=== PATIENT | female | born 1940 | race Caucasian/White ===

== ENCOUNTER 2025-02-06 00:08 | Inpatient (IN) | payer MEDICARE, SELFPAY ==
[2025-02-06] VITALS (15 sets, daily range): BP systolic 84–159; BP diastolic 44–77; PULSE 78–113; RESP 16–27; TEMP 36.6–37.3; O2SAT 90–100; BMI 33.3; BMI 39.6
--- NOTE | 2025-02-06 00:10 | ECG_ITS ---
APPROVED REPORT Exam: Resting ECG HR:118 bpm ECG Measurements Heart Rate 118 AXES AZ 216 P 85 QRSd 95 QRS 18 QT 432 T 77 QTc 502 Conclusion SINUS TACHYCARDIA WITH FIRST DEGREE AV BLOCK INFERIOR MYOCARDIAL INFARCTION , PROBABLY OLD [40+ ms Q WAVE AND/OR ST/T ABNORMALITY IN II/aVF] No STEMI Electronically signed by : SERENA WEST, 02/06/2025 07:12:25
--- NOTE | 2025-02-06 00:28 | XR_ITS ---
PROCEDURE INFORMATION: Exam: XR Chest Exam date and time: 02/06/2025 2:22 AM Age: 84 years old Clinical indication: Other: Unwell; Additional info: Feels unwell, afib TECHNIQUE: Imaging protocol: Radiologic exam of the chest. Views: 1 view. COMPARISON: No relevant prior studies available. FINDINGS: Lungs: Unremarkable. No consolidation. Pleural spaces: Unremarkable. No pleural effusion. No pneumothorax. Heart/Mediastinum: Unremarkable. No cardiomegaly. Bones/joints: Degenerative changes of the right shoulder. IMPRESSION: No acute disease.
--- NOTE | 2025-02-06 00:43 | CT_ITS ---
PROCEDURE INFORMATION: Exam: CT Abdomen And Pelvis With Contrast Exam date and time: 02/06/2025 2:33 AM Age: 84 years old Clinical indication: Abdominal pain; Additional info: Generalized weakness, diarrhea TECHNIQUE: Imaging protocol: Computed tomography of the abdomen and pelvis with contrast. 3D rendering (Not supervised by radiologist): MIP and/or 3D reconstructed images were created by the technologist. Radiation optimization: All CT scans at this facility use at least one of these dose optimization techniques: automated exposure control; mA and/or kV adjustment per patient size (includes targeted exams where dose is matched to clinical indication); or iterative reconstruction. Contrast material: ISOVUE; Contrast volume: 70 ml; Contrast route: IV; COMPARISON: CR XR CHEST PORTABLE 02/06/2025 2:22 AM FINDINGS: Diaphragm: Large hiatal hernia. Liver: Normal. No mass. Gallbladder and biliary ducts: Normal. No calcified stones. No ductal dilation. Pancreas: Normal. No ductal dilation. Spleen: Normal. No splenomegaly. Adrenal glands: Normal. No mass. Kidneys and ureters: 3 cm simple appearing right renal cysts. No hydronephrosis or hydroureter. Stomach and bowel: Unremarkable. No obstruction. No mucosal thickening. Appendix: No evidence of appendicitis. Intraperitoneal space: Mild edema in the central mesentery. Vasculature: Filling defect in the left renal vein. Moderate calcification of the aorta and iliac arteries. Lymph nodes: Unremarkable. No enlarged lymph nodes. Urinary bladder: Unremarkable as visualized. Reproductive: Unremarkable as visualized. Bones/joints: Unremarkable. No acute fracture. Soft tissues: Unremarkable. IMPRESSION: 1. Filling defect in the left renal vein. Suspicious for renal vein thrombosis. 2. Large hiatal hernia. COMMENTS: Consistent with the [employer]'s Incidental Findings Committee white paper (J Am Walt Radiol 2018): Any incidental renal lesion less than 1 cm or classified as too small to characterize, or any incidental cystic renal lesion characterized as simple-appearing, is likely benign. No follow-up imaging is recommended for these lesions per consensus recommendations based on imaging criteria.
[2025-02-06] MEDS: LACTATED RINGERS 1000ML 1,000 ML 999 ML IV (00:44)
[2025-02-06] MEDS: ASPIRIN 81MG CHEWABLE TABLET 324 MG PO (00:44)
[2025-02-06 00:45] LABS: Hematocrit 39.7 % (37.0-47.0); Hemoglobin 13.0 g/dL (12.2-16.2); Immature Granulocytes % 0.8 %; Mean Corpuscular HGB Conc 32.7 g/dL (31.8-35.4); Mean Corpuscular Hemoglobin 31.9 pg (27.0-31.2); Mean Corpuscular Volume 97.3 fl (81-99); Nucleated Red Blood Cells % 0 %; Platelet Count 322 K/mm3 (142-424); Red Blood Count 4.08 M/mm3 (4.20-5.40); Red Cell Distribution Width-SD 46.6 fL; White Blood Count 29.5 K/mm3 (4.8-10.8)
[2025-02-06 00:46] LABS: Alanine Aminotransferase 20 U/L (12-78); Albumin Level 4.3 g/dl (3.5-5.0); Albumin/Globulin Ratio 1.0 (1.1-1.8); Alkaline Phosphatase 85 U/L (38-126); Anion Gap 13.3 mEq/L (5-15); Aspartate Amino Transferase 44 U/L (14-36); Bilirubin,Total 1.7 mg/dl (0.2-1.3); Blood Urea Nitrogen 21 mg/dl (7-17); Calcium 10.1 mg/dl (8.4-10.2); Carbon Dioxide 27 mmol/L (22.0-30.0); Chloride 98 mmol/L (98-107); Creatinine Clearance Estimated 60 mL/min (50-200); Creatinine,Serum 1.00 mg/dl (0.52-1.04); Estimated Glomerular Filt Rate 53 ml/min (>60); GFR (African American) 64 ML/MIN (>60); Globulin 4.2 g/dL (1.3-3.2); Glucose 165 mg/dl (74-100); Potassium 4.3 mmoL/L (3.5-5.1); Sodium 134 mmol/L (136-145); Total Protein,Serum 8.5 g/dl (6.3-8.2)
--- NOTE | 2025-02-06 00:52 | CT_ITS ---
PROCEDURE INFORMATION: Exam: CTA Chest With Contrast Exam date and time: 02/06/2025 2:33 AM Age: 84 years old Clinical indication: Other: Unwell; Additional info: Tachy sepsis TECHNIQUE: Imaging protocol: Computed tomographic angiography of the chest with contrast. Exam focused on the arteries. 3D rendering (Not supervised by radiologist): MIP and/or 3D reconstructed images were created by the technologist. Radiation optimization: All CT scans at this facility use at least one of these dose optimization techniques: automated exposure control; mA and/or kV adjustment per patient size (includes targeted exams where dose is matched to clinical indication); or iterative reconstruction. Contrast material: ISOVUE; Contrast volume: 70 ml; Contrast route: INTRAVENOUS (IV); COMPARISON: CR XR CHEST PORTABLE 02/06/2025 2:22 AM FINDINGS: Limitations: Motion artifact degrades image quality and limits the sensitivity of this examination. Pulmonary arteries: Normal. No pulmonary emboli. Aorta: Extensive calcification of the aorta. Lungs: Unremarkable. No consolidation. No masses. Pleural spaces: Unremarkable. No pneumothorax. No pleural effusion. Heart: Unremarkable. No cardiomegaly. No pericardial effusion. Coronary arteries: Moderate calcification of the coronary arteries. Lymph nodes: Unremarkable. No enlarged lymph nodes. Diaphragm: Large hiatal hernia. Bones/joints: Unremarkable. No acute fracture. Soft tissues: Unremarkable. IMPRESSION: 1. No acute findings. 2. Large hiatal hernia. 3. Atherosclerotic calcification of the coronary arteries and aorta.
[2025-02-06 00:58] LABS: NT Pro Brain Natriuretic Pep. 1020 pg/mL (0-450)
[2025-02-06 01:00] LABS: Troponin I 0.01 ng/ml (0.00-0.034)
[2025-02-06 01:06] LABS: INR 1.00 (0.9-1.1); Prothrombin Time 11.1 seconds (10.1-12.5)
[2025-02-06 01:08] LABS: Adenovirus,PCR Not Detected (NotDetected); Chlamydophila Pneumoniae, PCR Not Detected (NotDetected); Coronavirus 19, PCR Not Detected (NotDetected); Coronovirus HKU1,PCR Not Detected (NotDetected); Influenza A, PCR Not Detected (NotDetected); Influenza AH1, 2009 Not Detected (NotDetected); Influenza AH1, PCR Not Detected (NotDetected); Influenza AH3,PCR Not Detected (NotDetected); Influenza B, PCR Not Detected (NotDetected); Mycoplasma Pneumoniae, PCR Not Detected (NotDetected); Parainfluenza 1, PCR Not Detected (NotDetected); Parainfluenza 2, PCR Not Detected (NotDetected); Parainfluenza 3, PCR Not Detected (NotDetected); Parainfluenza 4, PCR Not Detected (NotDetected)
--- NOTE | 2025-02-06 01:27 | PC.NURSE ---
Attempted to in & out cath pt for a UA. Kati RHODES at bedside, pt has a prolapsed bladder. Dr Laurent called to bedside, we will place a purewick cath in place to obtain a UA.
[2025-02-06 01:34] LABS: Total Cells Counted 100
[2025-02-06 01:35] LABS: RBC Morphology Normal
[2025-02-06] MEDS: CEFEPIME HCL 2 GM in 0.9 % SODIUM CHLORIDE 100 ML IV ×3 (02:01→18:55)
[2025-02-06] MEDS: LACTATED RINGERS 1360 ML IV (02:02)
[2025-02-06] MEDS: IOPAMIDOL-370 (76%);100ML BOTTLE 70 ML IV (02:41)
[2025-02-06] MEDS: SODIUM CHLORIDE 0.9% 10ML SYR (RAD ONLY) 10 ML IV (02:41)
[2025-02-06] MEDS: 0.9 % SODIUM CHLORIDE 50 ML VIAL IV (02:41)
[2025-02-06] MEDS: VANCOMYCIN/WATER FOR INJ (PEG) 1.75 GM/350 ML PIGGYBACK IV (03:13)
[2025-02-06] MEDS: METRONIDAZ/SOD CHL 500 MG/100 ML PIGGYBACK 100 MG IV (03:13)
--- NOTE | 2025-02-06 03:45 | EXP.HP ---
History of Present Illness *Admission Date: 02/06/25 *Reason for visit:: weakness *History of present illness: Ms. Najera is an 84-year-old female who presented to the ER because of complaint of feeling weak over the past day or 2. Has not wanted to get out of her chair at home. Has had some nausea but denies chest pain. On arrival by EMS, patient was found to be in A-fib with heart rate 130-160. She was unkempt and covered in feces. She denies nausea, vomiting, headache, dizziness, chest pain. Afebrile. Workup in the ER concerning for white count of 29. Heart rate showed some improvement with fluids and initiation of treatment for UTI/sepsis. Medicine consulted for admission and further management. [facility] Disclaimer: The information contained in this section may have been updated after the patient was seen, as this information can be updated by other users. Medical History Obesity (BMI 30.0-34.9) Hypothyroid Hypertension Social History Smoking Status: Never smoker alcohol intake: never current occupational status: retired Travel in the last 8 weeks?: None Review of Systems Review of Systems Review of systems (narrative): 14 point review of systems performed, pertinent positives and negatives as per HPI Meds Home Medications and Allergies Home Medications ?Medication ?Instructions ?Recorded ?Confirmed ?Type fluticasone propionate 50 1 spray intranasal BID 02/06/25 02/06/25 History mcg/actuation nasal spray,suspension hydrocodone 10 mg-acetaminophen 1 tab PO QID 02/06/25 02/06/25 History 325 mg tablet levothyroxine 75 mcg tablet 75 mcg PO DAILY 02/06/25 02/06/25 History losartan 50 mg-hydrochlorothiazide 1 tab PO DAILY 02/06/25 02/06/25 History 12.5 mg tablet montelukast 10 mg tablet 10 mg PO DAILY 02/06/25 02/06/25 History tolterodine 2 mg capsule,extended 2 mg PO DAILY 02/06/25 02/06/25 History release 24 hr New Prescriptions to Start Prescriptions: Allergies Allergy/AdvReac Type Severity Reaction Status Date / Time morphine AdvReac Anxiety Verified 02/06/25 00:50 Penicillins AdvReac Hives Verified 02/06/25 00:49 Sulfa (Sulfonamide AdvReac Hives Verified 02/06/25 00:49 Antibiotics) tetanus immune globulin AdvReac Unknown Verified 02/06/25 00:49 allergy reaction Exam Data for Last 24 hours Vital signs and Labs for Last 24 Hours: Temp Pulse Resp BP Pulse Ox O2 Del Method 98.8 F 111 H 27 H 95/61 L 95 Room Air 02/06/25 00:11 02/06/25 01:30 02/06/25 01:30 02/06/25 01:30 02/06/25 01:30 02/06/25 00:11 Laboratory Results - last 24 hr 02/06/25 00:10: WBC 29.5 H*, RBC 4.08 L, Hgb 13.0, Hct 39.7, MCV 97.3, MCH 31.9 H, MCHC 32.7, RDW 13.0, Plt Count 322, MPV 9.8, Neut % (Auto) 90.7 H, Lymph % (Auto) 3.6 L, Jennings % (Auto) 4.6, Eos % (Auto) 0.2, Baso % (Auto) 0.1, Neut # (Auto) 26.8 H, Lymph # (Auto) 1.1, Jennings # (Auto) 1.4 H, Eos # (Auto) 0.1, Baso # (Auto) 0.0, Total Counted 100, Neutrophils % (Manual) 89 H, Lymphocytes % (Manual) 7 L, Monocytes % (Manual) 4, Platelet Estimate Normal, RBC Morphology Normal, PT 11.1, INR 1.00, Sodium 134 L, Potassium 4.3, Chloride 98, Carbon Dioxide 27, Anion Gap 13.3, BUN 21 H, Creatinine 1.00, Estimated Creat Clear 60, Estimated GFR 53 L, Est GFR ( Amer) 64, Glucose 165 H, Calcium 10.1, Total Bilirubin 1.7 H, AST 44 H, ALT 20, Alkaline Phosphatase 85, Troponin I 0.01, NT-Pro-B Natriuret Pep 1020 H, Total Protein 8.5 H, Albumin 4.3, Globulin 4.2 H, Albumin/Globulin Ratio 1.0 L 02/06/25 01:00: Chlamy pneumoniae PCR Not detected, Adenovirus (PCR) Not detected, B. pertussis DNA (PCR) Not detected, Coronavirus OC43 (PCR) Not detected, Coronavirus HKU1 (PCR) Not detected, Coronavirus 229E (PCR) Not detected, SARS-CoV-2 (PCR) Not detected, Coronavirus NL63 (PCR) Not detected, Human Metapneumovir PCR Not detected, Influenza A (H1) PCR Not detected, Influ A (H1N1/09) PCR Not detected, Influenza A (H3) PCR Not detected, Influenza Type A (PCR) Not detected, Influenza Type B (PCR) Not detected, M. pneumoniae (PCR) Not detected, Parainfluenza 1 (PCR) Not detected, Parainfluenza 2 (PCR) Not detected, Parainfluenza 3 (PCR) Not detected, Parainfluenza 4 (PCR) Not detected, RSV (PCR) Not detected, Entero/Rhino (PCR) Not detected 02/06/25 01:08: Lactate 2.2 H I & O for Last 24 hours: Intake & Output 02/03/25 02/04/25 02/05/25 02/06/25 23:59 23:59 23:59 23:59 Weight 90.718 kg Constitutional Constitutional: no acute distress, obese, chronically ill appearing, disheveled and cooperative *Routine HEENT Exam Head: Present normocephalic Eye: Present EOMI and PERRL ENT: Present mucous membranes moist *Routine Neck Exam Neck: Present supple; Absent lymphadenopathy *Routine Respiratory Exam Respiratory: Present CTA bilaterally *Routine Cardiovascular Exam Cardiovascular: Present tachycardia and irregularly irregular *Routine Abdominal Exam Abdominal: Present soft and normoactive bowel sounds; Absent tenderness *Routine Rectal Exam Rectal:: deferred *Routine Genitalia Exam Genitalia:: deferred *Routine Extremities Exam Extremities: Absent cyanosis, clubbing or edema *Routine Skin Exam Skin: Present intact and warm; Absent rash *Routine Neurological Exam Neurological: Present alert, oriented X3 and moving all extremities; Absent altered mental status Assessment and Plan *Assessment and plan (1) New onset atrial fibrillation: Status: Acute Category: Medical Code(s): I48.91 - Unspecified atrial fibrillation (2) UTI (urinary tract infection): Status: Acute Category: Medical Code(s): N39.0 - Urinary tract infection, site not specified (3) Sepsis: Status: Acute Category: Medical Code(s): A41.9 - Sepsis, unspecified organism (4) Hypertension: Status: Chronic Category: Medical Code(s): I10 - Essential (primary) hypertension (5) Hypothyroid: Status: Chronic Category: Medical Code(s): E03.9 - Hypothyroidism, unspecified (6) Obesity (BMI 30.0-34.9): Status: Chronic Category: Medical Code(s): E66.811 - Obesity, class 1 Plan 84-year-old female who came to the ER because of complaint of weakness. States has been worse over the past 1 to 2 days. On presentation was found to have new onset A-fib with RVR. Meeting sepsis criteria with white count of 29.5, heart rate above 100, suspected UTI due to adhesion and stool in region. Discussed case with ER physician, request admission for further management of sepsis and A-fib. I decided to admit for further care. Initiated on empiric antibiotics. Heart rate showing improvement on amiodarone. Problems addressed as follows: Sepsis Urinary incontinence - Meeting criteria as above with white count of 29.5, heart rate above 100, suspected UTI. - Blood cultures obtained and pending. Urine culture pending. - Labs reviewed with normal kidney function, BUN 21, creatinine 1.0. Sodium 135, glucose elevated at 165. BNP mildly elevated at a thousand - Repeat CBC, CMP, magnesium ordered for the morning - Initiated on empiric antibiotics with vancomycin and cefepime. Will continue vancomycin IV and cefepime 2 g every 8 hours - Resume home tolterodine 2 mg daily A-fib with RVR, new onset Hypertension -Heart rate somewhat improved after initiating treatment for her sepsis. Heart rate at 100 at time of my evaluation. - Will initiate metoprolol to tartrate 25 mg every 8 hours - Cardiology consulted to evaluate in the morning. Echo ordered and pending - On therapeutic Lovenox 1 mg/kg twice daily - EKG per my review showing A-fib. No significant ST elevation Hypothyroid - TSH ordered and pending. Resume home levothyroxine 75 mcg daily Full code Cardiac diet Therapeutic Lovenox
--- NOTE | 2025-02-06 03:58 | PC.NURSE ---
Bladder Scan shows 89ml
[2025-02-06 04:16] LABS: Troponin I 0.02 ng/ml (0.00-0.034)
--- NOTE | 2025-02-06 04:48 | [facility].EDGENADL ---
Discharge Plan Clinical Impressions Clinical Impression: Sepsis, New onset atrial fibrillation, Hernia, hiatal, Renal vein thrombosis, Renal cyst Discharge ED Provider: Kyrie Laurent Adult HPI General Chief complaint: Arrhythmia/Palpitations Stated complaint: chest pain Time Seen by Provider: 02/06/25 00:28 Mode of Arrival: EMS Source of Information: Patient Description of Symptoms (Recalled from ER Triage Doc. by RN): patient c/o not feeling well all day. states that she has been sitting in her recliner at home since she got up this morning. patient states she has some nausea but denies chest pain. EMS stated patient was in afib on their montior with rate of 130-160 History of Present Illness HPI narrative: 84-year-old female presents to the ER complaining of feeling generally unwell. She states she has mild nausea but no chest pain or difficulty breathing, she states she has had a chronic diarrhea but this is nothing new and it is not bloody, nonmelanotic. Patient reports no painful urination or blood in her urine but wears briefs constantly. She arrives covered in feces. Patient denies any headache or dizziness, no numbness, tingling, or weakness. She repeatedly states I just do not feel good . She denies fevers or chills. EMS reports patient was in A-fib RVR with a rate of 130-160, patient reports no history of atrial fibrillation or other cardiac problems. She denies any history of CHF. She denies any swelling in the feet or legs. She does report having a history of previous strokes but not having any strokelike symptoms at this time. Related Data Allergies Allergy/AdvReac Type Severity Reaction Status Date / Time morphine AdvReac Anxiety Verified 02/06/25 00:50 Penicillins AdvReac Hives Verified 02/06/25 00:49 Sulfa (Sulfonamide AdvReac Hives Verified 02/06/25 00:49 Antibiotics) tetanus immune globulin AdvReac Unknown Verified 02/06/25 00:49 allergy reaction [facility] Disclaimer: The information contained in this section may have been updated after the patient was seen, as this information can be updated by other users. Medical History (Updated 02/06/25 @ 05:01 by Kyrie Laurent MD) Obesity (BMI 30.0-34.9) Hypothyroid Hypertension Social History Smoking Status: Never smoker alcohol intake: never current occupational status: retired Travel in the last 8 weeks?: None ROS Obtained: Yes Systems reviewed as appropriate & no additional complaints except as documented Per HPI Physical Exam General General appearance: alert, in no apparent distress and obese Head Head exam: atraumatic and normocephalic Eye Eye exam: Present PERRL and EOMI ENT ENT exam: Present mucous membranes moist Neck Neck exam: Present normal inspection and full ROM Chest Chest inspection: Present symmetric chest wall rise Respiratory Respiratory exam: Present normal lung sounds bilaterally; Absent respiratory distress, wheezes or stridor Cardiovascular Cardiovascular exam: Present regular rate and normal rhythm Abdominal Exam Abdominal exam: Present soft; Absent distention, tenderness, guarding or rebound External exam: Absent normal external exam (External exam appears to demonstrate abnormal labial adhesions, urethra cannot specifically be identified within the patient's atypical anatomy, there are no lesions or wounds.) Extremities Exam Extremities exam: Present full ROM; Absent edema Neurological Exam Neurological exam: Present alert and oriented X3; Absent motor sensory deficit Psychiatric Psychiatric exam: Present normal affect and normal mood Skin Skin exam: Present warm and dry Medical Decision Making Medical Records Medical records reviewed: Yes I reviewed the patient's medical records. Screening: Per USPSTF and CDC recommendations, given the prevalence of disease in our region, it is our hospital?s policy to screen for HIV and viral Hepatitis for all patients aged 18 and over and those with ongoing risk factors. Saurav Inquiry Pt receiving controlled substance: No Vital Signs: 02/06/25 00:11 02/06/25 00:44 02/06/25 01:02 Temperature 98.8 F Temperature Source Oral Pulse Rate 111 H 103 H Pulse Rate [Left] 113 H Respiratory Rate 18 26 H 25 H Blood Pressure 84/65 L 109/62 L Blood Pressure [Right Arm] 98/64 L Blood Pressure Mean [Right Arm] 75 Blood Pressure Source [Right Arm] Automatic Cuff Blood Pressure Position [Right Arm] Sitting 02 Sat by Pulse Oximetry 94 L 95 95 Oxygen Delivery Method Room Air 02/06/25 01:30 02/06/25 03:21 02/06/25 03:30 Temperature Temperature Source Pulse Rate 111 H 103 H 101 H Pulse Rate [Left] Respiratory Rate 27 H 22 22 Blood Pressure 95/61 L 144/71 H 159/69 H Blood Pressure [Right Arm] Blood Pressure Mean [Right Arm] Blood Pressure Source [Right Arm] Blood Pressure Position [Right Arm] 02 Sat by Pulse Oximetry 95 95 94 L Oxygen Delivery Method Room Air Room Air Lab Data Lab Results 02/06/25 00:10: WBC 29.5 H*, RBC 4.08 L, Hgb 13.0, Hct 39.7, MCV 97.3, MCH 31.9 H, MCHC 32.7, RDW 13.0, Plt Count 322, MPV 9.8, Neut % (Auto) 90.7 H, Lymph % (Auto) 3.6 L, [place] % (Auto) 4.6, Eos % (Auto) 0.2, Baso % (Auto) 0.1, Neut # (Auto) 26.8 H, Lymph # (Auto) 1.1, [place] # (Auto) 1.4 H, Eos # (Auto) 0.1, Baso # (Auto) 0.0, Total Counted 100, Neutrophils % (Manual) 89 H, Lymphocytes % (Manual) 7 L, Monocytes % (Manual) 4, Platelet Estimate Normal, RBC Morphology Normal, PT 11.1, INR 1.00, Sodium 134 L, Potassium 4.3, Chloride 98, Carbon Dioxide 27, Anion Gap 13.3, BUN 21 H, Creatinine 1.00, Estimated Creat Clear 60, Estimated GFR 53 L, Est GFR ( Amer) 64, Glucose 165 H, Calcium 10.1, Total Bilirubin 1.7 H, AST 44 H, ALT 20, Alkaline Phosphatase 85, Troponin I 0.01, NT-Pro-B Natriuret Pep 1020 H, Total Protein 8.5 H, Albumin 4.3, Globulin 4.2 H, Albumin/Globulin Ratio 1.0 L 02/06/25 01:00: Chlamy pneumoniae PCR Not detected, Adenovirus (PCR) Not detected, B. pertussis DNA (PCR) Not detected, Coronavirus OC43 (PCR) Not detected, Coronavirus HKU1 (PCR) Not detected, Coronavirus 229E (PCR) Not detected, SARS-CoV-2 (PCR) Not detected, Coronavirus NL63 (PCR) Not detected, Human Metapneumovir PCR Not detected, Influenza A (H1) PCR Not detected, Influ A (H1N1/09) PCR Not detected, Influenza A (H3) PCR Not detected, Influenza Type A (PCR) Not detected, Influenza Type B (PCR) Not detected, M. pneumoniae (PCR) Not detected, Parainfluenza 1 (PCR) Not detected, Parainfluenza 2 (PCR) Not detected, Parainfluenza 3 (PCR) Not detected, Parainfluenza 4 (PCR) Not detected, RSV (PCR) Not detected, Entero/Rhino (PCR) Not detected 02/06/25 01:08: Lactate 2.2 H 02/06/25 03:30: Troponin I 0.02 02/06/25 00:10 02/06/25 00:10 Orders (Tests/Meds): ED MEDICATIONS Generic Name Dose Route Start Last Admin Trade Name Freq PRN Reason Stop Dose Admin Acetaminophen 650 mg 02/06/25 03:42 Acetaminophen 325mg Tab PO 03/08/25 03:41 Q4HP PRN Fever or Mild Pain (1-3) Enoxaparin Sodium 90 mg 02/06/25 03:45 Enoxaparin 100mg/Ml Syringe 1 mg/kg (90 mg) 03/08/25 03:44 SUBCUT Q12H DONALDO Heparin Sodium (Porcine) 5,000 unit 02/06/25 09:00 Heparin Sodium 5,000 Unit/Ml Vial SUBCUT 03/08/25 08:59 TID DONALDO Lactated Ringer's 1,000 mls @ 50 mls/hr 02/06/25 03:45 Lactated Ringer's 1000 Ml Bag IV 02/06/25 23:44 .Q20H DONALDO Cefepime HCl 2 gm/ Sodium 100 mls @ 200 mls/hr 02/06/25 08:30 Chloride IV 02/16/25 08:29 Q8H [facility] Miscellaneous 1 each 02/06/25 01:00 02/06/25 04:44 Vancomycin Consult Request NOTAPPLIC 03/08/25 00:59 Not Given CONSULT PHARMACY [facility] Miscellaneous 1 each 02/06/25 04:30 Vancomycin Consult Request NOTAPPLIC 03/08/25 04:29 CONSULT PHARMACY [facility] Discontinued Medications Generic Name Dose Route Start Last Admin Trade Name Freq PRN Reason Stop Dose Admin Aspirin 324 mg 02/06/25 00:29 02/06/25 00:44 Aspirin 81mg Chewable Tablet PO 02/06/25 00:30 324 mg ONCE ONE Administration Lactated Ringer's 1,000 mls @ 999 mls/hr 02/06/25 00:28 02/06/25 00:44 Lactated Ringer's 1000 Ml Bag IV 02/06/25 01:28 999 mls/hr .Q1H1M ONE Administration Lactated Ringer's 2,720 mls @ 1,360 mls/hr 02/06/25 00:50 02/06/25 02:02 Lactated Ringer's 1000 Ml Bag 30 ml/kg infuse over 2 hr (2720 ml) 02/06/25 02:49 1,360 mls/hr IV Administration .Q2H ONE Protocol Cefepime HCl 2 gm/ Sodium 100 mls @ 200 mls/hr 02/06/25 00:53 02/06/25 02:01 Chloride IV 02/06/25 01:22 200 mls/hr ONCE ONE Administration Metronidazole 500 mg in 100 mls @ 100 mls/hr 02/06/25 00:53 02/06/25 03:13 Flagyl 500mg/100ml Ivpb IV 02/06/25 01:52 100 mls/hr ONCE ONE Administration Vancomycin/PEG/NADA/Lysine/Water 1.75 gm in 350 mls @ 175 mls/hr 02/06/25 01:00 02/06/25 03:13 Vancomycin 1.75gm/350ml (Peg) Premix IV 02/06/25 02:59 175 mls/hr ONCE ONE Administration Iopamidol 70 ml 02/06/25 02:40 02/06/25 02:41 Iopamidol-370 (76%);100ml Bottle IV 02/06/25 02:41 70 ml ONCE ONE Administration Sodium Chloride 50 ml 02/06/25 02:40 02/06/25 02:41 0.9 % Sodium Chloride 50 Ml Vial IV 02/06/25 02:41 50 ml ONCE ONE Administration Sodium Chloride 10 ml 02/06/25 02:40 02/06/25 02:41 Sodium Chloride 0.9% 10ml Syr (Rad Only) IV 02/06/25 02:41 10 ml ONCE ONE Administration ORDERS Category Date Time Status CT abdomen pelvis w con Stat Cat Scan 02/06/25 00:[address] angio chest PE protocol Stat Cat Scan 02/06/25 00:52 Completed Cardiology Consult [Consult to Cardiology] [CONS] Cons 02/06/25 03:43 Active Routine CXR --portable [XR chest portable] Stat Exams 02/06/25 00:28 Completed BNP [NT Pro Brain Natriuretic Pep.] Stat Lab 02/06/25 00:10 Completed CBC w/Auto Diff [Complete Blood Count Auto Diff] Stat Lab 02/06/25 00:10 Completed CMP [Comprehensive Metabolic Panel] Stat Lab 02/06/25 00:10 Completed Complete Blood Count Auto Diff AMLAB Lab 02/06/25 06:00 Ordered Comprehensive Metabolic Panel AMLAB Lab 02/06/25 06:00 Ordered Full Resp Panel w/COVID ([facility]) Routine Lab 02/06/25 01:00 Completed Lactic Acid Stat Lab 02/06/25 01:08 Completed Magnesium AMLAB Lab 02/06/25 06:00 Ordered Prothrombin Time INR Stat Lab 02/06/25 00:10 Completed Trop I [Troponin I] Stat Lab 02/06/25 00:10 Completed Troponin I Q3H Lab 02/06/25 03:30 Completed Troponin I Q3H Lab 02/06/25 06:30 Ordered Urinalysis and Microscopic Stat Lab 02/06/25 00:43 Ordered Blood Culture Stat Micro 02/06/25 01:29 Received Tissue Perfus/Sepsis Re-Eval Sepsis Re-Evaluation Performed: Yes Date Performed: 02/06/25 Time Performed: 03:30 Medical Decision Narrative: In summary, this 84-year-old female presents to the emergency department today with generalized weakness stating she just does not feel good . On initial evaluation patient is mildly tachycardic and in atrial fibrillation on arrival with soft blood pressures but not truly hypotensive, perfusing and mentating well on exam, cardiopulmonary exam is benign, abdominal exam benign, patient was covered in feces when she initially arrived but this has been cleaned up. She has abnormal appearing anatomy which lends itself to increased likelihood of urinary tract infection especially since her labial adhesions caused old stool to be trapped in the urethral region. She is a GCS 15 with no focal neurologic deficits. She does not appear toxic at this time. Differential diagnosis includes but is not limited to ACS, arrhythmia, fluid overload, urinary tract infection, sepsis, infectious diarrhea, intra-abdominal or intrathoracic infection, PE, among others. Based on these concerns, I ordered broad laboratory workup, CT imaging. ECG personally interpreted demonstrates sinus tachycardia, first-degree AV block, rate 118, QTc 502, no STEMI. Patient was in atrial fibrillation when she first arrived in the ER but appears to have spontaneously converted. Patient received IV fluids initially for treatment. She also received aspirin. Labs personally reviewed demonstrate significant leukocytosis with WBC nearly 30, with this finding and her other symptoms I am concerned for sepsis so full sepsis fluid bolus and broad-spectrum antibiotics have been ordered. I also expanded the patient's laboratory workup to include lactic, blood cultures, and more. Patient has no anemia, normal platelets, CMP with mild prerenal azotemia, PT/INR normal, lactate mildly elevated at 2.2 which is being treated with IV fluids. Initial troponin 0.01, BNP elevated at 1020 with no previous for comparison. Full respiratory panel negative for all analytes Chest x-ray personally interpreted does not demonstrate acute thoracic abnormality, see radiology read for final supination. Chest CTA personally interpreted does not demonstrate PE or infiltrate, see radiology read for full interpretation which does mention hiatal hernia and atherosclerosis of the coronaries and aorta. CT abdomen pelvis discusses renal cysts and filling defect in the left renal vein, possible renal vein thrombosis. Patient has good kidney function and is making urine. I discussed this with the hospitalist who does not believe there is acute intervention to be performed at this time since they will be initiating anticoagulation anyways for the patient's episode of new onset atrial fibrillation. Ultimately patient's heart rate is improved with fluids and antibiotics, she remains hemodynamically stable, blood pressure better. She is well-appearing and states she feels well at this time. We have not been able to obtain urinalysis because patient's anatomy is extremely abnormal and she cannot be catheterized, she has not yet provided a spontaneously voided sample. I discussed this case at length with the hospitalist including her presentation, exam and lab findings, imaging findings, etc. He agreed to admit the patient. He is going to be starting her anticoagulation for new onset A-fib and this will also address the potential left renal vein thrombus, they will also continue treating the patient for sepsis. Patient admitted in stable condition Critical Care Critical Care Time Critical Care Time: Yes Attestation: On 02/06/25, the high probability of a clinically significant, sudden or life threatening deterioration of the following system(s) required my full and direct attention, intervention and personal management. The time I documented below is in addition to time spent performing reported procedures but includes the following listed in this critical care notation. Total Time Total Critical Care Time: 35
[2025-02-06 05:12] LABS: Reflex Lactic Add Lactic Reflex
--- NOTE | 2025-02-06 05:32 | CA_ITS ---
APPROVED REPORT EXAM: Comprehensive 2D, Doppler, and color-flow Echocardiogram Wheel Polisher: Fiorella Domínguez RVT Ht: 5 ft 5 in Wt: 238lbs BSA: 2.13 BP: 95/61 mmHg Indications: A-FIB 2D Dimensions LA Volume 52.80 mL LA Volume Index 24.79 mL/m2 (M/F) 16-34 M-Mode Dimensions RVDd 3.13 cm (0.9-2.6) LA Diam 4.58 cm (1.9-4.0) LVDd 5.89 cm (3.5-5.7) LVDs 4.49 cm (3.5-5.7) IVSd 1.06 cm (0.6-1.1) PWd 0.80 cm (0.6-1.1) EF (Teich) 46.70% FS 23.80% EDV (Teich) 172.50 mL TAPSE 1.82 (<1.7) ESV (Teich) 92.00 mL LV Diastology E Decel Time 150 (160-240 msec) E/A Ratio 1.4 Aortic Valve DIPIKA Index 1.27 cm2/m2 AoV Peak Remigio. 108.0 (50-130 cm/s) AO Peak GR. 4.70 mmHg AO Mean GR. 2.80 (<5 mmHg) AO VTI 21.8 (18-25 cm) DIPIKA (VTI) 2.77 (2.5-4.5 cm2) Mitral Valve MV E Max Remigio. 114.0 (40-130 cm/s) MV A Velocity 79.0 (40-130 cm/s) E/A Ratio 1.45 MV PHT 44.0 ms Pulmonary Valve PV Peak Velocity 60.0 (50-150 cm/s) Tricuspid Valve TR P. Velocity 331.00 cm/s RAP Estimate 8.00 mmHg RVSP 51.80 mmHg Left Ventricle The left ventricle is normal size. Left ventricular systolic function is low-normal. There is increased left ventricular wall thickness. There is normal LV segmental wall motion. The left ventricular diastolic function is normal. LVEF is 50% Right Ventricle The right ventricle is mildly dilated. Right ventricle is mildly hypokinetic. Atria Left atrium is severely dilated. Right atrium is severely dilated. There is no color Doppler evidence of interatrial shunt. Aortic Valve The aortic valve is mildly thickened. There is no hemodynamically significant aortic valvular stenosis. Trace aortic regurgitation is present. Mitral Valve The mitral valve is normal in structure. No evidence of mitral valve stenosis. Mild mitral regurgitation is present. Tricuspid Valve The tricuspid valve leaflets are thin and pliable. Mild tricuspid regurgitation. RVSP is 45-50 mmHg. Pulmonic Valve The pulmonary valve is grossly normal in structure. Trace pulmonic valve regurgitation is present. Great Vessels The aortic root is normal in size. IVC is normal in size and collapses >50% with inspiration. Pericardium There is no pericardial effusion. Other Information Study Quality: Fair Conclusion Low-normal LV systolic function. Mild RV dilation with mild reduction in RV function. Severe biatrial dilation. Mild MR, mild TR. Markedly elevated RVSP 45-50 mmHg. Electronically signed by : Savannah Bingham MD 02/06/2025 12:21:53
[2025-02-06] MEDS: METOPROLOL TARTRATE 25MG TABLET 25 MG PO ×3 (05:52→20:11)
[2025-02-06] MEDS: LACTATED RINGERS 1000ML 1,000 ML 50 ML IV (05:53)
--- NOTE | 2025-02-06 06:34 | PC.WOUNDNOTE ---
2cm open area, redness, bleeding, blanchable
--- NOTE | 2025-02-06 06:36 | PC.WOUNDNOTE ---
bottom, redness, 2cm open area, bleeding, blanchable
--- NOTE | 2025-02-06 06:36 | PC.WOUNDNOTE ---
right leg, redness, warm to touch
[2025-02-06 07:28] LABS: Hematocrit 39.3 % (37.0-47.0); Hemoglobin 12.5 g/dL (12.2-16.2); Immature Granulocytes % 0.7 %; Mean Corpuscular HGB Conc 31.8 g/dL (31.8-35.4); Mean Corpuscular Hemoglobin 31.7 pg (27.0-31.2); Mean Corpuscular Volume 99.7 fl (81-99); Nucleated Red Blood Cells % 0 %; Platelet Count 191 K/mm3 (142-424); Red Blood Count 3.94 M/mm3 (4.20-5.40); Red Cell Distribution Width-SD 47.5 fL; White Blood Count 25.7 K/mm3 (4.8-10.8)
[2025-02-06 08:01] LABS: Troponin I 0.37 ng/ml (0.00-0.034)
--- NOTE | 2025-02-06 08:05 | EXP.PHA.CONS ---
Pharmacy Consult Date: 02/06/25 Time: 08:08 Referring provider: DR DOUGLAS Reason for Consult:: VANCOMYCIN DOSING CONSULT Allergies Allergy/AdvReac Type Severity Reaction Status Date / Time morphine AdvReac Anxiety Verified 02/06/25 00:50 Penicillins AdvReac Hives Verified 02/06/25 00:49 Sulfa (Sulfonamide AdvReac Hives Verified 02/06/25 00:49 Antibiotics) tetanus immune globulin AdvReac Unknown Verified 02/06/25 00:49 allergy reaction Home Medications ?Medication ?Instructions ?Recorded ?Confirmed ?Type fluticasone propionate 50 1 spray intranasal BID 02/06/25 02/06/25 History mcg/actuation nasal spray,suspension hydrocodone 10 mg-acetaminophen 1 tab PO QID 02/06/25 02/06/25 History 325 mg tablet levothyroxine 75 mcg tablet 75 mcg PO DAILY 02/06/25 02/06/25 History losartan 50 mg-hydrochlorothiazide 1 tab PO DAILY 02/06/25 02/06/25 History 12.5 mg tablet montelukast 10 mg tablet 10 mg PO DAILY 02/06/25 02/06/25 History tolterodine 2 mg capsule,extended 2 mg PO DAILY 02/06/25 02/06/25 History release 24 hr New Prescriptions to Start Prescriptions: Height: 1.65 m Weight: 108.046 kg Laboratory Results:: Laboratory Results - last 24 hr 02/06/25 00:10: WBC 29.5 H*, RBC 4.08 L, Hgb 13.0, Hct 39.7, MCV 97.3, MCH 31.9 H, MCHC 32.7, RDW 13.0, Plt Count 322, MPV 9.8, Neut % (Auto) 90.7 H, Lymph % (Auto) 3.6 L, [place] % (Auto) 4.6, Eos % (Auto) 0.2, Baso % (Auto) 0.1, Neut # (Auto) 26.8 H, Lymph # (Auto) 1.1, [place] # (Auto) 1.4 H, Eos # (Auto) 0.1, Baso # (Auto) 0.0, Total Counted 100, Neutrophils % (Manual) 89 H, Lymphocytes % (Manual) 7 L, Monocytes % (Manual) 4, Platelet Estimate Normal, RBC Morphology Normal, PT 11.1, INR 1.00, Sodium 134 L, Potassium 4.3, Chloride 98, Carbon Dioxide 27, Anion Gap 13.3, BUN 21 H, Creatinine 1.00, Estimated Creat Clear 60, Estimated GFR 53 L, Est GFR ( Amer) 64, Glucose 165 H, Calcium 10.1, Total Bilirubin 1.7 H, AST 44 H, ALT 20, Alkaline Phosphatase 85, Troponin I 0.01, NT-Pro-B Natriuret Pep 1020 H, Total Protein 8.5 H, Albumin 4.3, Globulin 4.2 H, Albumin/Globulin Ratio 1.0 L 02/06/25 01:00: Chlamy pneumoniae PCR Not detected, Adenovirus (PCR) Not detected, B. pertussis DNA (PCR) Not detected, Coronavirus OC43 (PCR) Not detected, Coronavirus HKU1 (PCR) Not detected, Coronavirus 229E (PCR) Not detected, SARS-CoV-2 (PCR) Not detected, Coronavirus NL63 (PCR) Not detected, Human Metapneumovir PCR Not detected, Influenza A (H1) PCR Not detected, Influ A (H1N1/09) PCR Not detected, Influenza A (H3) PCR Not detected, Influenza Type A (PCR) Not detected, Influenza Type B (PCR) Not detected, M. pneumoniae (PCR) Not detected, Parainfluenza 1 (PCR) Not detected, Parainfluenza 2 (PCR) Not detected, Parainfluenza 3 (PCR) Not detected, Parainfluenza 4 (PCR) Not detected, RSV (PCR) Not detected, Entero/Rhino (PCR) Not detected 02/06/25 01:08: Lactate 2.2 H 02/06/25 03:30: Troponin I 0.02 02/06/25 07:20: WBC 25.7 H*, RBC 3.94 L, Hgb 12.5, Hct 39.3, MCV 99.7 H, MCH 31.7 H, MCHC 31.8, RDW 13.0, Plt Count 191 D, MPV 9.8, Neut % (Auto) 87.9 H, Lymph % (Auto) 5.7 L, [place] % (Auto) 5.4, Eos % (Auto) 0.0 L, Baso % (Auto) 0.3, Neut # (Auto) 22.6 H, Lymph # (Auto) 1.5, [place] # (Auto) 1.4 H, Eos # (Auto) 0.0, Baso # (Auto) 0.1, Troponin I 0.37 H Medical History: Medical History (Updated 02/06/25 @ 06:41 by Gino Douglas MD) History of cataract Asthma History of transient ischemic attack (TIA) Osteoarthritis Deep vein thrombosis (DVT) Hyperlipidemia Obesity (BMI 30.0-34.9) Hypothyroid Hypertension Assessment and Plan Assessment and plan all Dx Assessment and Plan for all problems:: Pharmacokinetic dosing service Objective: Age: 84 yo Serum creatinine: 1 mg/dL Height: 65.0 Inches Weight (kg): 108.046 Diagnosis: CELLULITIS Assessment: IBW (kg): 57.00 Dosing wt(kg): 108.046 Estimated Creatinine clearance (ml/min): 37.7 CRCL method: Cockcroft and Gault using ibw(default). Drug selected: Vancomycin Loading dose (mg): 1750 MG Vd (liters): 75.6 (factor used: 0.7 L/kg) Louis (hr-1): 0.036 Half life (hrs): 19.25 CLvanco=?? 2.722 L/hr Recommended dose: 1500 mg Interval: 24 hrs Infusion time (hrs): 2.0 Predicted peak (mcg/mL): 33.1 Predicted trough (mcg/mL): 14.99 Total body weight is being used for vancomycin dosing. Recommendations: Give Vancomycin 1500 mg q 24 hrs with an expected Cpeak of 33.1 mcg/ml and an expected Ctrough of 14.99 mcg/ml AUC 0-24 /TORRES Data: TRORES 0.5 mcg/mL:?? AUC/TORRES:? 1102.1 TORRES 1.0 mcg/mL:?? AUC/TORRES:? 551.1 --------- TORRES 1.5 mcg/mL:?? AUC/TORRES:? 367.4 TORRES 2.0 mcg/mL:?? AUC/TORRES:? 275.5 Thank you for the consult
--- NOTE | 2025-02-06 08:06 | PC.NURSE ---
lab called critical troponin of 0.37 this AM notified.
--- NOTE | 2025-02-06 08:15 | [facility].PHAINT1 ---
Pharmacy Intervention Comments: MEDICATION RECONCILIATION COMPLETED ON PATIENT USING EXTERNAL FILL HISTORY FROM PHARMACY. -MENDY SPARKS, JOSED
[2025-02-06 08:34] LABS: Lactic Acid Follow Up (RFLX 1) 3.6 mmol/L (0.7-2.1)
[2025-02-06] MEDS: TOLTERODINE LA 2MG CAP.ER.24H 2 MG PO (08:38)
[2025-02-06] MEDS: LEVOTHYROXINE 75MCG (0.075MG) TAB 75 MCG PO (08:39)
--- NOTE | 2025-02-06 08:51 | HMH.OTEV ---
OT Inpatient Evaluation Rehab OT IP Evaluation Start: 02/06/25 05:37 Freq: ONCE Status: Active Protocol: Document 02/06/25 08:43 [facility] (Rec: 02/06/25 08:50 [facility] [id number]) Rehab OT IP Assessment Subjective History Pt oriented x 2 on arrival. Pt agreeable to engage in therapy evaluation. Pt admitted on 02/06/25 due to sepsis and A-fib. History and physical: Ms. Najera is an 84-year-old female who presented to the ER because of complaint of feeling weak over the past day or 2. Has not wanted to get out of her chair at home. Has had some nausea but denies chest pain. On arrival by EMS, patient was found to be in A-fib with heart rate 130-160. She was unkempt and covered in feces. She denies nausea, vomiting, headache, dizziness, chest pain. Afebrile. Workup in the ER concerning for white count of 29. Heart rate showed some improvement with fluids and initiation of treatment for UTI/sepsis. Medicine consulted for admission and further management. Subjective Prior to being in the hospital, pt lived with son and daughter. Pt claims normally she is independent with ADLs (feeding, bathing, and dressing). However, she is dependent upon family for completion of all IADLs. Pt does use a rollator during functional transfers. Objective Patient Orientation Person,Birthday Right Upper WFL Extremity Gross ROM Left Upper Extremity WFL Gross ROM Bed Mobility bed mobility-scooting,bed mobility - supine/sit Assist Level Moderate x 2 (50% assist) Transfer Training Sit/Stand Transfer Assist Level Moderate x 2 (50% assist) Rehab OT IP prob,goals,plan Problems Date of Evaluation: 02/06/25 OT IP Problems Bed Mobility,Transfers,Balance,Self care,Safety Rehab Potential Rehab Potential Good Equipment Needs Assistive Devices Rolling / Wheeled Walker Plan OT intervention Plan Bed Mobility,Transfers,Balance,Self care,Safety, Therapeutic Exercise OT Plan Frequency Daily Duration LOS Discharge Goals Bed Mobility Ability Assistance x1 Sit to Stand Chair Moderate x 1 (50% assist) Transfer Ability Chair Transfer Moderate x 1 (50% assist) Ability Chair Transfer Sit to/from Ambulatory Technique Chair Transfer Rolling Walker Assistive Devices Lower Body Dressing Moderate Assistance Ability Upper Body Dressing Contact Guard Ability Performing Toilet Moderate Assistance Hygiene Ability Overall Commode/ Moderate Assistance Toilet Transfer Ability Commode/Toilet Sit to/from Ambulatory Transfer Technique Discharge Plan OT Discharge Plan Pt will continue to be seen for OT services while at [facility]. At this time, pt would benefit most from short term rehab at SNF following discharge from hospital; pt presents below baseline. Continued skilled therapy is important for patient to improve strength, safety, endurance, ADL independence, and functional transfers to reach PLOF. Eval Complexity Eval Charge Codes 73261 - Moderate Complexity PHYSICIAN CERTIFICATION: I certify the specified therapy services for Misty Najera are required, authorized, and reviewed every 30 days.
[2025-02-06 09:00] LABS: Thyroid Stimulating Hormone 1.35 uIU/mL (0.465-4.68)
--- NOTE | 2025-02-06 09:19 | P.CONCA_ITS ---
History of Present Illness History of Present Illness Consult date: 02/06/25 Requesting physician: Gino Gonzalez Chief complaint: weakness History of present illness: Hospitalist note: Ms. Najera is an 84-year-old female who presented to the ER because of complaint of feeling weak over the past day or 2. Has not wanted to get out of her chair at home. Has had some nausea but denies chest pain. On arrival by EMS, patient was found to be in A-fib with heart rate 130-160. She was unkempt and covered in feces. She denies nausea, vomiting, headache, dizziness, chest pain. Afebrile. Workup in the ER concerning for white count of 29. Heart rate showed some improvement with fluids and initiation of treatment for UTI/sepsis. Medicine consulted for admission and further management. Cardiology note: Ms. Najera is an 84-year-old white female who presented to emergency department with complaints of generalized weakness for the past 2 days. Patient was admitted for concern for UTI and sepsis. Cardiology was asked to evaluate for new onset A-fib RVR on arrival to ER. Per ER doctor note patient was in A-fib RVR upon arrival to ER and then converted to normal sinus rhythm on her own. 1 EKG is available for review which shows sinus tachycardia at a rate of 118. Patient was started on metoprolol and this morning she is in normal sinus rhythm at a rate of 80. Of note patient was also treated with fluids for sepsis protocol. Patient had a chest CTA on admission which was negative for PE but did show atherosclerotic calcifications of the coronary arteries and aorta. Patient also had a abdomen pelvis CT which showed a filling defect in the left renal vein suspicious for renal vein thrombosis. Creatinine is normal. Troponin was 0.02 on admission trending up to 0.37. This morning patient is resting comfortably in her bed and maintaining normal sinus rhythm. She denies any chest pain or shortness of breath. [facility] Disclaimer: The information contained in this section may have been updated after the patient was seen, as this information can be updated by other users. Medical History (Updated 02/06/25 @ 09:34 by Yoselin Santamaria APRN) History of cataract Asthma History of transient ischemic attack (TIA) Osteoarthritis Deep vein thrombosis (DVT) Hyperlipidemia Obesity (BMI 30.0-34.9) Hypothyroid Hypertension Social History (Updated 02/06/25 @ 05:37 by Gayla Fragoso RN) Smoking Status: Never smoker alcohol intake: never current occupational status: retired Travel in the last 8 weeks?: None Contact w/someone who lives/traveled outside [place] past 30 days?: No Exposure to someone with infectious disease in past 14 days?: No Do you have a fever (greater than 100.4 F or 38 C)?: No Have you tested positive for COVID-19?: No Exposed to someone with COVID-19 in past 14 days?: No Do you have a sore throat?: No Do you have a cough?: No Do you have any weakness?: Yes Are you experiencing any nausea/vomitting?: No Do you have any diarrhea?: No Are you experiencing any unusual bleeding?: No Do you have any muscle aches/pain?: No Do you have any abdominal pain?: No Are you experiencing loss of taste or smell?: No Review of Systems Review of Systems Review of systems:: pertinent systems reviewed and negative unless documented below Constitutional Comments: Generalized weakness *Cardiovascular Cardiovascular: Denies chest pain and Denies dyspnea *Respiratory Respiratory: Denies dyspnea Exam Data for Last 24 hours Vital signs and Labs for Last 24 Hours: Temp Pulse Resp BP Pulse Ox O2 Del Method 98 F 100 H 21 148/67 H 100 Room Air 02/06/25 05:03 02/06/25 05:29 02/06/25 05:29 02/06/25 05:29 02/06/25 05:29 02/06/25 08:00 Laboratory Results - last 24 hr 02/06/25 00:10: WBC 29.5 H*, RBC 4.08 L, Hgb 13.0, Hct 39.7, MCV 97.3, MCH 31.9 H, MCHC 32.7, RDW 13.0, Plt Count 322, MPV 9.8, Neut % (Auto) 90.7 H, Lymph % (Auto) 3.6 L, [place] % (Auto) 4.6, Eos % (Auto) 0.2, Baso % (Auto) 0.1, Neut # (Auto) 26.8 H, Lymph # (Auto) 1.1, [place] # (Auto) 1.4 H, Eos # (Auto) 0.1, Baso # (Auto) 0.0, Total Counted 100, Neutrophils % (Manual) 89 H, Lymphocytes % (Manual) 7 L, Monocytes % (Manual) 4, Platelet Estimate Normal, RBC Morphology Normal, PT 11.1, INR 1.00, Sodium 134 L, Potassium 4.3, Chloride 98, Carbon Dioxide 27, Anion Gap 13.3, BUN 21 H, Creatinine 1.00, Estimated Creat Clear 60, Estimated GFR 53 L, Est GFR ( Amer) 64, Glucose 165 H, Calcium 10.1, Total Bilirubin 1.7 H, AST 44 H, ALT 20, Alkaline Phosphatase 85, Troponin I 0.01, NT-Pro-B Natriuret Pep 1020 H, Total Protein 8.5 H, Albumin 4.3, Globulin 4.2 H, Albumin/Globulin Ratio 1.0 L 02/06/25 01:00: Chlamy pneumoniae PCR Not detected, Adenovirus (PCR) Not detected, B. pertussis DNA (PCR) Not detected, Coronavirus OC43 (PCR) Not detected, Coronavirus HKU1 (PCR) Not detected, Coronavirus 229E (PCR) Not detected, SARS-CoV-2 (PCR) Not detected, Coronavirus NL63 (PCR) Not detected, Human Metapneumovir PCR Not detected, Influenza A (H1) PCR Not detected, Influ A (H1N1/09) PCR Not detected, Influenza A (H3) PCR Not detected, Influenza Type A (PCR) Not detected, Influenza Type B (PCR) Not detected, M. pneumoniae (PCR) Not detected, Parainfluenza 1 (PCR) Not detected, Parainfluenza 2 (PCR) Not detected, Parainfluenza 3 (PCR) Not detected, Parainfluenza 4 (PCR) Not dete cted, RSV (PCR) Not detected, Entero/Rhino (PCR) Not detected 02/06/25 01:08: Lactate 2.2 H 02/06/25 03:30: Troponin I 0.02 02/06/25 07:20: WBC 25.7 H*, RBC 3.94 L, Hgb 12.5, Hct 39.3, MCV 99.7 H, MCH 31.7 H, MCHC 31.8, RDW 13.0, Plt Count 191 D, MPV 9.8, Neut % (Auto) 87.9 H, Lymph % (Auto) 5.7 L, [place] % (Auto) 5.4, Eos % (Auto) 0.0 L, Baso % (Auto) 0.3, Neut # (Auto) 22.6 H, Lymph # (Auto) 1.5, [place] # (Auto) 1.4 H, Eos # (Auto) 0.0, Baso # (Auto) 0.1, Troponin I 0.37 H, TSH 1.35 02/06/25 : Lactate 3.6 H I & O for Last 24 hours: Intake & Output 02/03/25 02/04/25 02/05/25 02/06/25 23:59 23:59 23:59 23:59 Weight 238 lb 3.2 oz Constitutional Constitutional: no acute distress *Routine Respiratory Exam Respiratory: Present CTA bilaterally and symmetric chest movement *Routine Cardiovascular Exam Cardiovascular: Present RRR, Normal S1 and Normal S2 *Routine Abdominal Exam Abdominal: Present soft and normoactive bowel sounds; Absent tenderness *Routine Extremities Exam Extremities: Present full ROM and normal capillary refill; Absent edema *Routine Skin Exam Skin: Present intact, dry and warm Detailed Neck Exam: Thyroids Thyroid: Absent bruit Meds Home Medications and Allergies Home Medications ?Medication ?Instructions ?Recorded ?Confirmed ?Type fluticasone propionate 50 1 spray intranasal BID 02/0602/06/25 History mcg/actuation nasal spray,suspension hydrocodone 10 mg-acetaminophen 1 tab PO QID 02/06/25 02/06/25 History 325 mg tablet levothyroxine 75 mcg tablet 75 mcg PO DAILY 02/06/25 0 02/06/25 History losartan 50 mg-hydrochlorothiazide 1 tab PO DAILY 08/0202/06/25 History 12.5 mg tablet montelukast 10 mg tablet 10 mg PO HS 02/06/25 5 History tolterodine 2 mg capsule,extended 2 mg PO DAILY 02/06/25 History release 24 hr New Prescriptions to Start Prescriptions: Allergies Allergy/AdvReac Type Severity Reaction Status Date / Time morphine AdvReac Anxiety Verified 02/06/25 00:50 Penicillins AdvReac Hives Verified 02/06/25 00:49 Sulfa (Sulfonamide AdvReac Hives Verified 02/06/25 00:49 Antibiotics) tetanus immune globulin AdvReac Unknown Verified 02/06/25 00:49 allergy reaction Assessment and Plan *Assessment and plan (1) Sepsis: Status: Acute Category: Medical Code(s): A41.9 - Sepsis, unspecified organism (2) UTI (urinary tract infection): Status: Acute Category: Medical Code(s): N39.0 - Urinary tract infection, site not specified (3) New onset atrial fibrillation: Status: Acute Category: Medical Code(s): I48.91 - Unspecified atrial fibrillation (4) Renal vein thrombosis: Status: Acute Category: Medical Code(s): I82.3 - Embolism and thrombosis of renal vein (5) Elevated troponin: Status: Acute Category: Medical Code(s): R79.89 - Other specified abnormal findings of blood chemistry Plan Reported new onset A-fib RVR Patient was reportedly in A-fib RVR upon presentation to hospital. EKG available for review shows sinus tachycardia This morning patient is in normal sinus rhythm at a rate of 80 Continue metoprolol to tartrate 25 mg every 8 hours for rate control. Currently receiving Lovenox. Can transition to Eliquis for treatment of A- fib and possible renal vein thrombosis Please discharge patient home in a 2-week event monitor. Elevated troponin In the setting of acute sepsis with UTI and A-fib RVR/tachycardia Troponin elevated to 0.37 EKG negative for STEMI Patient denies chest pain or shortness of breath Elevation is probably secondary to demand Echocardiogram is pending If echo is normal patient can be evaluated for ischemia on an outpatient basis. If any significant findings are noted on echo should be considered for left heart catheterization during this admission. Start aspirin and statin Possible left renal vein thrombosis Abdomen pelvis CT showed a filling defect at the left renal vein suspicious for renal vein thrombosis Creatinine remains normal Patient is making urine Can continue Lovenox and transition to Eliquis prior to discharge home. CV summary 02/06/2025: Can transition Lovenox to Eliquis for treatment of A-fib and left renal vein thrombosis. Please discharge patient home in a 2-week event monitor and have her follow-up in cardiology clinic for 1 week reevaluation. Patient will need outpatient ischemic evaluation.
--- NOTE | 2025-02-06 09:26 | HMH.PTEV ---
Physical Therapy Evaluation Rehab PT IP Evaluation Start: 02/06/25 06:47 Freq: ONCE Status: Active Protocol: Document 02/06/25 09:22 [facility] (Rec: 02/06/25 09:26 [facility] [id number]) Subjective/History History History 84-year-old female who presented to the ER because of complaint of feeling weak over the past day or 2. Has not wanted to get out of her chair at home. Has had some nausea but denies chest pain. On arrival by EMS, patient was found to be in A-fib with heart rate 130- 160. She was unkempt and covered in feces. She denies nausea, vomiting, headache, dizziness, chest pain. Afebrile. Workup in the ER concerning for white count of 29. Heart rate showed some improvement with fluids and initiation of treatment for UTI/sepsis. Medicine consulted for admission and further management. Pt reports she lives with family, no KERON the home, and she ambulates independently with rolator at baseline. Subjective Subjective Pt reports feeling tired and weak this am, but does agree to mobility assessment. No c/o pain. [facility] How much help from another person do you currently need... Turning from your A little back to your side while in a flat bed without using bedrails? Moving from lying on A lot back to sitting on the side of a flat bed without using bedrails? Moving to and from a A lot bed to a chair ( including a wheelchair)? Standing up from a A lot chair using your arms? (e.g., wheelchair, bedside chair) Walking in hospital A lot room? Climbing 3-5 steps A lot with a railing? Mobility Score 13 Mobility Level [facility] Mobility 4 Move to chair/commode Mobility Calculator Rehab PT IP Eval Objective Appearance Patient Behavior Appropriate Patient Orientation Person,Place,Time Difficulty following none instructions Speech Pattern Clear Ambulation Patient Able to No Ambulate Balance Ability to Arise Able, uses arms to help Sitting Balance Leans or slides in chair Standing Balance Unsteady Dynamic Sitting Fair Balance Ability Dynamic Standing Poor Balance Ability Transfers Bed Transfer Ability Maximum x 1 (75% assist) Sit to Stand Bed Maximum x 1 (75% assist) Transfer Ability Rehab PT IP prob,goals,plan Problems Date of Evaluation: 02/06/25 PT IP Problems Bed Mobility,Transfers,Gait Rehab Potential Rehab Potential Good Plan PT Intervention Plan Bed Mobility,Transfers,Gait,Therapeutic Exercise PT Plan Frequency Daily Duration LOS Discharge Goals Bed Transfer Ability Moderate x 1 (50% assist) Sit to Stand Chair Moderate x 1 (50% assist) Transfer Ability Ambulation Assistive Rolling Walker Device Ambulation Distance 10 (feet) Discharge Plan PT Discharge Plan Pt is currently most appropriate for rehab placement once medically stable for d/c. Skilled acute therapy services are indicated to improve transfer, general strength and ambulation ability in order to return to [facility]. Eval Complexity Eval Charge Codes 49900 - High Complexity PHYSICIAN CERTIFICATION: I certify the specified therapy services for Misty Najera are required, authorized, and reviewed every 30 days.
--- NOTE | 2025-02-06 09:30 | HMH.PTWOUND ---
Rehab Inpt Wound Evaluation Rehab IP Wound Evaluation Start: 02/06/25 06:41 Freq: ONCE Status: Active Protocol: Document 02/06/25 09:26 [facility] (Rec: 02/06/25 09:29 [facility] [id number]) Rehab PT Wound Assessment Subjective Subjective 84-year-old female who presented to the ER because of complaint of feeling weak over the past day or 2. Has not wanted to get out of her chair at home. Has had some nausea but denies chest pain. On arrival by EMS, patient was found to be in A-fib with heart rate 130- 160. She was unkempt and covered in feces. She denies nausea, vomiting, headache, dizziness, chest pain. Afebrile. Workup in the ER concerning for white count of 29. Heart rate showed some improvement with fluids and initiation of treatment for UTI/sepsis. Medicine consulted for admission and further management. Pt presents with wound to sacrum upon admission. Wound Sacrum Wound Type Pressure Ulcer Is This a Chronic No Wound Wound Length (cm) 3.0 Wound Width (cm) 0.3 Wound Depth (cm) 0.1 Wound Bed Appearance Beefy Red Wound Margins Well Defined Description Surrounding Tissue Bright Red Appearance Wound Drainage Sanguineous Description Drainage Amount Small Primary Dressing Composite Dressing Change Tolerated Well Patient Tolerance Plan/Recommendation Comment Wound presentation most consistent with a combination of increased pressure and MASD due to incontinence. No current needs for excisional debridement and nsg staff if treating wound appropriately while maintaining pressure relief as indicated. Thank you for involving the wound care team in the care of this pt. Eval Complexity Eval Charge Codes 46388 - High Complexity PHYSICIAN CERTIFICATION: I certify the specified therapy services for Misty Najera are required, authorized, and reviewed every 30 days.
[2025-02-06] MEDS: ASPIRIN EC 81MG TABLET 81 MG PO (09:44)
--- NOTE | 2025-02-06 10:09 | SW/DCPLANNER ---
Addendum entered by [facility] 02/09/25 11:47: Patient has been approved SNF level of care. I have updated MD. Elyssa wyman/ Natan Lewis is agreeable for patient to admit today. I will update patient's nurse (Luis). Addendum entered by [facility] 02/09/25 07:34: Updated patient information faxed to [facility]. Addendum entered by [facility] 02/06/25 11:52: [facility] is willing to accept and start auth. Patient/family are agreeable w/ this plan. I have updated other facilities reviewing patient information. Addendum entered by [facility] 02/06/25 10:59: [facility] is unable to accept due to bed availability. Original Note: I spoke w/ patient and her son regarding plans once medically stable for discharge. Patient stated that she resides at home w/ her two sons. PT/OT evaluated patient and recommended SNF level of care. Patient is agreeable to placement and for information to be faxed to [facility], [facility], [facility] and [facility]. I will follow up w/ facilities once information is reviewed. Discharge date is unknown at this time. I will continue to follow up.
[2025-02-06 10:33] LABS: Reflex Lactic (2 hrs) Add Lactic Reflex
[2025-02-06 11:02] LABS: Lactic Acid Follow up (RFLX 2) 2.1 mmol/L (0.7-2.1)
[2025-02-06 12:08] LABS: Microscopic, Urine URINE MICROSCOPIC (MICROSCOPIC)
[2025-02-06 12:36] LABS: Bilirubin,Urine Negative (Negative); Color,Urine YELLOW (Yellow); Glucose,Urine (UA) Negative (Negative); Ketones,Urine Negative (Negative); Leukocyte Esterase,Urine Negative (Negative); PH,Urine 6.0 (5.0-8.5); Protein,Urine TRACE (Negative); Specific Gravity, Urine 1.015 (1.005-1.030); Urobilinogen,Urine 0.2 EU/dl (0.2)
[2025-02-06 12:50] LABS: Bacteria,Urine Trace /lpf; Squamous Epithelial Cell,Urine Occasional #/hpf (0-5)
--- NOTE | 2025-02-06 13:49 | PC.NURSE ---
PATIENT IS ALERT AND ORIENTED X4, VSS. PT CONVERTED FROM AFIB TO NSR THIS MORNING AND HAS REMAINED IN NSR SINCE. URINE COLLECTED AND SEND TO LAB. FAMILY IS AT BEDSIDE.
[2025-02-06 13:57] LABS: Alanine Aminotransferase 17 U/L (12-78); Albumin Level 3.6 g/dl (3.5-5.0); Albumin/Globulin Ratio 1.1 (1.1-1.8); Alkaline Phosphatase 67 U/L (38-126); Anion Gap 11.6 mEq/L (5-15); Aspartate Amino Transferase 52 U/L (14-36); Bilirubin,Total 1.1 mg/dl (0.2-1.3); Blood Urea Nitrogen 23 mg/dl (7-17); Calcium 9.1 mg/dl (8.4-10.2); Carbon Dioxide 26 mmol/L (22.0-30.0); Chloride 99 mmol/L (98-107); Creatinine Clearance Estimated 71 mL/min (50-200); Creatinine,Serum 0.90 mg/dl (0.52-1.04); Estimated Glomerular Filt Rate 60 ml/min (>60); GFR (African American) 72 ML/MIN (>60); Globulin 3.2 g/dL (1.3-3.2); Glucose 131 mg/dl (74-100); Magnesium 1.6 mg/dl (1.6-2.3); Potassium 3.6 mmoL/L (3.5-5.1); Sodium 133 mmol/L (136-145); Total Protein,Serum 6.8 g/dl (6.3-8.2)
--- NOTE | 2025-02-06 16:55 | EXP.EVENT.NO ---
Patient is seen and evaluated at the bedside, denied chest pain shortness of breath nausea vomiting diarrhea constipation dysuria, no new complaints today. waiting for placement
[2025-02-06] MEDS: ACETAMINOPHEN 325MG TAB 650 MG PO (20:10)
[2025-02-06] MEDS: APIXABAN 5MG TABLET 5 MG PO (20:11)
[2025-02-06] MEDS: ATORVASTATIN 40MG TABLET 40 MG PO (20:11)
[2025-02-07] VITALS (10 sets, daily range): BP systolic 113–147; BP diastolic 51–73; PULSE 67–79; RESP 16–18; TEMP 36.6–36.8; O2SAT 91–95; BMI 40.0
[2025-02-07] MEDS: CALCIUM CARBONATE 500MG CHEWTAB 500 MG PO ×2 (00:29→12:46)
[2025-02-07] MEDS: SODIUM CHLORIDE 0.9% 10ML VIAL 10 ML IV (00:29)
[2025-02-07] MEDS: PANTOPRAZOLE 40MG VIAL 40 MG IV (00:29)
[2025-02-07] MEDS: CEFEPIME HCL 2 GM in 0.9 % SODIUM CHLORIDE 100 ML IV ×3 (01:24→20:13)
[2025-02-07] MEDS: VANCOMYCIN/WATER FOR INJ (PEG) 1.5 GM/300 ML PIGGYBACK IV (02:00)
--- NOTE | 2025-02-07 04:43 | PC.NURSE ---
Pt A&Ox4. Pt is on RA. Pt's heart rate has been controlled. Pt has had two IV's removed, one infiltrating. Pharmacy was contacted to determine if there were any medicinal needs to treat the infiltration. Pharmacy advised there were no medicinal treatments, and to elevate and apply heat to the area. Pt has had no other acute changes noted. Pt medicated per SEP. Pt not voicing any concerns at this time. Pt resting in bed w/ call light in reach. POC ongoing.
[2025-02-07] MEDS: METOPROLOL TARTRATE 25MG TABLET 25 MG PO ×3 (05:04→20:13)
[2025-02-07] MEDS: LEVOTHYROXINE 75MCG (0.075MG) TAB 75 MCG PO (06:22)
[2025-02-07 07:13] LABS: Hematocrit 31.3 % (37.0-47.0); Immature Granulocytes % 0.4 %; Mean Corpuscular HGB Conc 32.3 g/dL (31.8-35.4); Mean Corpuscular Hemoglobin 32.2 pg (27.0-31.2); Mean Corpuscular Volume 99.7 fl (81-99); Nucleated Red Blood Cells % 0 %; Platelet Count 212 K/mm3 (142-424); Red Blood Count 3.14 M/mm3 (4.20-5.40); Red Cell Distribution Width-SD 47.5 fL; White Blood Count 13.6 K/mm3 (4.8-10.8)
[2025-02-07 07:21] LABS: Albumin Level 2.7 g/dl (3.5-5.0); Chloride 96 mmol/L (98-107); Potassium 3.5 mmoL/L (3.5-5.1); Sodium 129 mmol/L (136-145)
[2025-02-07 07:23] LABS: Alanine Aminotransferase 16 U/L (12-78)
[2025-02-07 07:24] LABS: Albumin/Globulin Ratio 0.7 (1.1-1.8); Alkaline Phosphatase 70 U/L (38-126); Anion Gap 7.5 mEq/L (5-15); Aspartate Amino Transferase 44 U/L (14-36); Bilirubin,Total 0.5 mg/dl (0.2-1.3); Calcium 8.9 mg/dl (8.4-10.2); Carbon Dioxide 29 mmol/L (22.0-30.0); Globulin 3.9 g/dL (1.3-3.2); Glucose 111 mg/dl (74-100); Magnesium 1.8 mg/dl (1.6-2.3); Total Protein,Serum 6.6 g/dl (6.3-8.2)
[2025-02-07 07:29] LABS: Blood Urea Nitrogen 23 mg/dl (7-17); Creatinine Clearance Estimated 36 mL/min (50-200); Creatinine,Serum 0.90 mg/dl (0.52-1.04); Estimated Glomerular Filt Rate 60 ml/min (>60); GFR (African American) 72 ML/MIN (>60)
[2025-02-07 07:47] LABS: Hemoglobin 10.1 g/dL (12.2-16.2)
[2025-02-07 08:21] LABS: Procalcitonin 0.423 ng/mL (0.0-2.0)
[2025-02-07] MEDS: ASPIRIN EC 81MG TABLET 81 MG PO (08:51)
[2025-02-07] MEDS: TOLTERODINE LA 2MG CAP.ER.24H 2 MG PO (08:52)
[2025-02-07] MEDS: APIXABAN 5MG TABLET 5 MG PO ×2 (08:52→20:13)
--- NOTE | 2025-02-07 10:52 | PC.NURSE ---
patient being turned every 2 hours. Pt reports that she got good rest last night, denies shortness of breath or chest pain.
--- NOTE | 2025-02-07 11:02 | PC.NURSE ---
patient has maintained NSR on tele so far this morning.
--- NOTE | 2025-02-07 12:27 | PC.NURSE ---
patient got up to chair with physical therapy for lunch
--- NOTE | 2025-02-07 16:07 | EXP.PN ---
Subjective *Date: 02/07/25 *Time: 16:07 Interval history: patient is seen at bedside, denied CP, SOB, Nausea vomiting Exam Data for Last 24 hours Vital signs and Labs for Last 24 Hours: Temp Pulse Resp BP Pulse Ox O2 Del Method 98.0 F 79 18 147/62 H 95 Room Air 02/07/25 12:00 02/07/25 12:00 02/07/25 12:00 02/07/25 12:00 02/07/25 12:00 02/07/25 14:19 Laboratory Results - last 24 hr 02/07/25 06:50: WBC 13.6 H D, RBC 3.14 L, Hgb 10.1 L D, Hct 31.3 L, MCV 99.7 H, MCH 32.2 H, MCHC 32.3, RDW 13.1, Plt Count 212, MPV 9.9, Neut % (Auto) 75.5, Lymph % (Auto) 13.5, [place] % (Auto) 7.7, Eos % (Auto) 2.6, Baso % (Auto) 0.3, Neut # (Auto) 10.2 H, Lymph # (Auto) 1.8, [place] # (Auto) 1.1 H, Eos # (Auto) 0.4, Baso # (Auto) 0.0, Sodium 129 L, Potassium 3.5, Chloride 96 L, Carbon Dioxide 29, Anion Gap 7.5, BUN 23 H, Creatinine 0.90, Estimated Creat Clear 36, Estimated GFR 60, Est GFR ( Amer) 72, Glucose 111 H, Calcium 8.9, Magnesium 1.8 D, Total Bilirubin 0.5, AST 44 H, ALT 16, Alkaline Phosphatase 70, Total Protein 6.6, Albumin 2.7 L D, Globulin 3.9 H, Albumin/Globulin Ratio 0.7 L, Procalcitonin 0.423 I & O for Last 24 hours: Intake & Output 02/04/25 02/05/25 02/06/25 02/07/25 23:59 23:59 23:59 23:59 Intake Total 400 / 500 760 / 760 Output Total 200 / 200 700 / 700 Balance 200 / 300 60 / 60 Weight 108.046 kg 108.953 kg Microbiology Reports for the Last 24 Hours: Microbiology 02/06/25 01:29 Blood Blood Culture - Preliminary NO GROWTH AFTER 24 HOURS 02/06/25 01:08 Blood Blood Culture - Preliminary NO GROWTH AFTER 24 HOURS Constitutional Constitutional: no acute distress *Routine HEENT Exam Head: Present normocephalic Eye: Present EOMI and PERRL ENT: Present mucous membranes moist *Routine Neck Exam Neck: Present supple; Absent lymphadenopathy *Routine Respiratory Exam Respiratory: Present CTA bilaterally *Routine Cardiovascular Exam Cardiovascular: Present RRR *Routine Abdominal Exam Abdominal: Present soft and normoactive bowel sounds; Absent tenderness *Routine Extremities Exam Extremities: Absent cyanosis, clubbing or edema *Routine Skin Exam Skin: Present warm; Absent rash *Routine Neurological Exam Neurological: Present alert and oriented X3 Assessment and Plan *Assessment and plan (1) New onset atrial fibrillation: Status: Acute Category: Medical Code(s): I48.91 - Unspecified atrial fibrillation (2) UTI (urinary tract infection): Status: Acute Category: Medical Code(s): N39.0 - Urinary tract infection, site not specified (3) Sepsis: Status: Acute Category: Medical Code(s): A41.9 - Sepsis, unspecified organism (4) Hypertension: Status: Chronic Category: Medical Code(s): I10 - Essential (primary) hypertension (5) Hypothyroid: Status: Chronic Category: Medical Code(s): E03.9 - Hypothyroidism, unspecified (6) Obesity (BMI 30.0-34.9): Status: Chronic Category: Medical Code(s): E66.811 - Obesity, class 1 Plan 84-year-old female who came to the ER because of complaint of weakness. States has been worse over the past 1 to 2 days. On presentation was found to have new onset A-fib with RVR. Sepsis Urinary incontinence - Initiated on empiric antibiotics with vancomycin and cefepime. - Will continue vancomycin IV and cefepime 2 g every 8 hours - Resume home tolterodine 2 mg daily A-fib with RVR, new onset Hypertension -Heart rate somewhat improved after initiating treatment for her sepsis. Heart rate at 100 at time of my evaluation. - Will initiate metoprolol to tartrate 25 mg every 8 hours - Cardiology consulted to evaluate in the morning. Echo ordered and pending - On therapeutic Lovenox 1 mg/kg twice daily - EKG per my review showing A-fib. No significant ST elevation Hypothyroid - TSH ordered and pending. Resume home levothyroxine 75 mcg daily Full code Cardiac diet Therapeutic Lovenox
--- NOTE | 2025-02-07 16:15 | PC.NURSE ---
patient was a max assist back to the bed
[2025-02-07] MEDS: ATORVASTATIN 40MG TABLET 40 MG PO (20:13)
[2025-02-07] MEDS: PANTOPRAZOLE 40MG TABLET 40 MG PO (20:13)
[2025-02-08] VITALS: PULSE 75
[2025-02-08] MEDS: VANCOMYCIN/WATER FOR INJ (PEG) 1.5 GM/300 ML PIGGYBACK IV (02:29)
[2025-02-08 04:00] VITALS: BP 132/67; PULSE 80; PULSE 82; RESP 17; TEMP 36.7; O2SAT 91; BMI 38.0
--- NOTE | 2025-02-08 04:19 | PC.NURSE ---
Pt A&Ox4. Pt is on RA. Pt's IV went bad, it was removed and another IV was placed in the Left Forearm. Pt has not had any acute chnages noted. Pt medicated per SEP. Pt not voicing any concerns and resting w/ call light in reach. POC ongoing.
[2025-02-08] MEDS: METOPROLOL TARTRATE 25MG TABLET 25 MG PO ×3 (05:02→20:18)
[2025-02-08] MEDS: LEVOTHYROXINE 75MCG (0.075MG) TAB 75 MCG PO (06:05)
[2025-02-08 06:48] LABS: Albumin Level 2.6 g/dl (3.5-5.0); Chloride 100 mmol/L (98-107); Potassium 3.7 mmoL/L (3.5-5.1); Sodium 132 mmol/L (136-145)
[2025-02-08 06:50] LABS: Magnesium 1.7 mg/dl (1.6-2.3)
[2025-02-08 06:51] LABS: Alanine Aminotransferase 16 U/L (12-78); Albumin/Globulin Ratio 0.7 (1.1-1.8); Alkaline Phosphatase 66 U/L (38-126); Anion Gap 6.7 mEq/L (5-15); Aspartate Amino Transferase 31 U/L (14-36); Bilirubin,Total 0.5 mg/dl (0.2-1.3); Blood Urea Nitrogen 19 mg/dl (7-17); Calcium 9.0 mg/dl (8.4-10.2); Carbon Dioxide 29 mmol/L (22.0-30.0); Creatinine Clearance Estimated 68 mL/min (50-200); Creatinine,Serum 0.80 mg/dl (0.52-1.04); Estimated Glomerular Filt Rate 68 ml/min (>60); GFR (African American) 83 ML/MIN (>60); Globulin 3.8 g/dL (1.3-3.2); Glucose 118 mg/dl (74-100); Hematocrit 31.2 % (37.0-47.0); Hemoglobin 9.7 g/dL (12.2-16.2); Immature Granulocytes % 0.5 %; Mean Corpuscular HGB Conc 31.1 g/dL (31.8-35.4); Mean Corpuscular Hemoglobin 30.7 pg (27.0-31.2); Mean Corpuscular Volume 98.7 fl (81-99); Nucleated Red Blood Cells % 0 %; Platelet Count 252 K/mm3 (142-424); Red Blood Count 3.16 M/mm3 (4.20-5.40); Red Cell Distribution Width-SD 46.3 fL; Total Protein,Serum 6.4 g/dl (6.3-8.2); White Blood Count 14.4 K/mm3 (4.8-10.8)
[2025-02-08 08:00] VITALS: BP 123/53; PULSE 70; RESP 16; TEMP 36.8; O2SAT 94
[2025-02-08] MEDS: CEFEPIME HCL 2 GM in 0.9 % SODIUM CHLORIDE 100 ML IV ×3 (08:38→23:57)
[2025-02-08] MEDS: TOLTERODINE LA 2MG CAP.ER.24H 2 MG PO (08:39)
[2025-02-08] MEDS: ASPIRIN EC 81MG TABLET 81 MG PO (08:40)
[2025-02-08] MEDS: APIXABAN 5MG TABLET 5 MG PO ×2 (08:40→20:17)
[2025-02-08 12:00] VITALS: BP 150/53; PULSE 80; PULSE 84; RESP 18; TEMP 36.8; O2SAT 94
[2025-02-08 16:00] VITALS: BP 141/61; PULSE 70; PULSE 76; RESP 20; TEMP 36.9; O2SAT 95
--- NOTE | 2025-02-08 16:59 | EXP.PN ---
Subjective *Date: 02/08/25 *Time: 16:59 Interval history: patient is seen at bedside, denied CP, SOB, Nausea vomiting, no acute events over night Exam Data for Last 24 hours Vital signs and Labs for Last 24 Hours: Temp Pulse Resp BP Pulse Ox O2 Del Method 98.5 F 76 20 141/61 H 95 Room Air 02/08/25 16:00 02/08/25 16:00 02/08/25 16:00 02/08/25 16:00 02/08/25 16:00 02/08/25 16:00 Laboratory Results - last 24 hr 02/08/25 06:15: WBC 14.4 H, RBC 3.16 L, Hgb 9.7 L, Hct 31.2 L, MCV 98.7, MCH 30.7, MCHC 31.1 L, RDW 12.7, Plt Count 252, MPV 9.5, Neut % (Auto) 79.9, Lymph % (Auto) 10.0, [place] % (Auto) 7.8, Eos % (Auto) 1.6, Baso % (Auto) 0.2, Neut # (Auto) 11.5 H, Lymph # (Auto) 1.4, [place] # (Auto) 1.1 H, Eos # (Auto) 0.2, Baso # (Auto) 0.0, Sodium 132 L, Potassium 3.7, Chloride 100, Carbon Dioxide 29, Anion Gap 6.7, BUN 19 H, Creatinine 0.80, Estimated Creat Clear 68, Estimated GFR 68, Est GFR ( Amer) 83, Glucose 118 H, Calcium 9.0, Magnesium 1.7, Total Bilirubin 0.5, AST 31 D, ALT 16, Alkaline Phosphatase 66, Total Protein 6.4, Albumin 2.6 L, Globulin 3.8 H, Albumin/Globulin Ratio 0.7 L I & O for Last 24 hours: Intake & Output 02/05/25 02/06/25 02/07/25 02/08/25 23:59 23:59 23:59 23:59 Intake Total 400 / 500 760 / 860 670 / 670 Output Total 200 / 200 1400 / 1400 800 / 800 Balance 200 / 300 -640 / -540 -130 / -130 Weight 108.046 kg 108.953 kg 103.6 kg Microbiology Reports for the Last 24 Hours: Microbiology 02/06/25 01:29 Blood Blood Culture - Preliminary NO GROWTH AFTER 48 HOURS 02/06/25 01:08 Blood Blood Culture - Preliminary NO GROWTH AFTER 48 HOURS Constitutional Constitutional: no acute distress *Routine HEENT Exam Head: Present normocephalic Eye: Present EOMI and PERRL ENT: Present mucous membranes moist *Routine Neck Exam Neck: Present supple; Absent lymphadenopathy *Routine Respiratory Exam Respiratory: Present CTA bilaterally *Routine Cardiovascular Exam Cardiovascular: Present RRR *Routine Abdominal Exam Abdominal: Present soft and normoactive bowel sounds; Absent tenderness *Routine Extremities Exam Extremities: Absent cyanosis, clubbing or edema *Routine Skin Exam Skin: Present warm; Absent rash *Routine Neurological Exam Neurological: Present alert and oriented X3 Assessment and Plan *Assessment and plan (1) New onset atrial fibrillation: Status: Acute Category: Medical Code(s): I48.91 - Unspecified atrial fibrillation (2) UTI (urinary tract infection): Status: Acute Category: Medical Code(s): N39.0 - Urinary tract infection, site not specified (3) Sepsis: Status: Acute Category: Medical Code(s): A41.9 - Sepsis, unspecified organism (4) Hypertension: Status: Chronic Category: Medical Code(s): I10 - Essential (primary) hypertension (5) Hypothyroid: Status: Chronic Category: Medical Code(s): E03.9 - Hypothyroidism, unspecified (6) Obesity (BMI 30.0-34.9): Status: Chronic Category: Medical Code(s): E66.811 - Obesity, class 1 Plan 84-year-old female who came to the ER because of complaint of weakness. States has been worse over the past 1 to 2 days. On presentation was found to have new onset A-fib with RVR. Sepsis Urinary incontinence - Initiated on empiric antibiotics with vancomycin and cefepime. - Will continue vancomycin IV and cefepime 2 g every 8 hours - Resume home tolterodine 2 mg daily A-fib with RVR, new onset Hypertension -Heart rate somewhat improved after initiating treatment for her sepsis. Heart rate at 100 at time of my evaluation. - Will initiate metoprolol to tartrate 25 mg every 8 hours - Cardiology consulted to evaluate - Echo ordered and pending - On therapeutic Lovenox 1 mg/kg twice daily - EKG per my review showing A-fib. No significant ST elevation Hypothyroid - TSH ordered and pending. Resume home levothyroxine 75 mcg daily Full code Cardiac diet Therapeutic Lovenox
--- NOTE | 2025-02-08 18:05 | PC.NURSE ---
pt has done well this shift and remained in NSR. audible wheezing noted on initial assessment and pt states this is her norm . audible wheezing no longer heard t/o shift. new dsg to buttocks cdi. family has been at bs. cb within reach no needs at this time.
[2025-02-08 20:00] VITALS: BP 148/74; PULSE 80; PULSE 84; RESP 17; TEMP 36.8; O2SAT 93
[2025-02-08] MEDS: PANTOPRAZOLE 40MG TABLET 40 MG PO (20:18)
[2025-02-08] MEDS: ATORVASTATIN 40MG TABLET 40 MG PO (20:18)
[2025-02-09] VITALS: BP 159/77; PULSE 80; PULSE 84; RESP 17; TEMP 37.2; O2SAT 90
[2025-02-09] MEDS: PHA TO NURSING INSTRUCTION 1 EACH NOTAPPLIC (02:17)
[2025-02-09 02:55] LABS: Vancomycin,Trough 12.1 ug/mL (5.0-10.0)
--- NOTE | 2025-02-09 03:02 | PC.NURSE ---
Spoke to [facility] to confirm Vanc dosing. Confirmed scheduled dose is good to give.
[2025-02-09] MEDS: VANCOMYCIN/WATER FOR INJ (PEG) 1.5 GM/300 ML PIGGYBACK IV (03:04)
[2025-02-09 04:00] VITALS: BP 147/66; PULSE 77; PULSE 80; RESP 18; TEMP 36.6; O2SAT 91; BMI 37.7
--- NOTE | 2025-02-09 04:14 | PC.NURSE ---
Pt A&Ox4. Pt is on RA. Pt has audible wheezes, pt reports this to be her baseline. Pt has been offered to turn, pt was refusing to turn sides, but was open to adjusting her position to alleviate pressure. Pt has had no acute changes. Pt not voicing any concerns at this time. Pt resting in bed w/ call light in reach. POC ongoing.
[2025-02-09] MEDS: METOPROLOL TARTRATE 25MG TABLET 25 MG PO ×2 (05:03→13:30)
[2025-02-09] MEDS: LEVOTHYROXINE 75MCG (0.075MG) TAB 75 MCG PO (06:16)
[2025-02-09 06:32] LABS: Hematocrit 32.0 % (37.0-47.0); Hemoglobin 10.3 g/dL (12.2-16.2); Immature Granulocytes % 0.7 %; Mean Corpuscular HGB Conc 32.2 g/dL (31.8-35.4); Mean Corpuscular Hemoglobin 31.7 pg (27.0-31.2); Mean Corpuscular Volume 98.5 fl (81-99); Nucleated Red Blood Cells % 0 %; Platelet Count 282 K/mm3 (142-424); Red Blood Count 3.25 M/mm3 (4.20-5.40); Red Cell Distribution Width-SD 45.7 fL; White Blood Count 13.4 K/mm3 (4.8-10.8)
[2025-02-09 06:51] LABS: Chloride 100 mmol/L (98-107)
[2025-02-09 06:52] LABS: Albumin Level 2.8 g/dl (3.5-5.0); Potassium 3.6 mmoL/L (3.5-5.1); Sodium 132 mmol/L (136-145)
[2025-02-09 06:54] LABS: Blood Urea Nitrogen 17 mg/dl (7-17); Creatinine Clearance Estimated 68 mL/min (50-200); Creatinine,Serum 0.90 mg/dl (0.52-1.04); Estimated Glomerular Filt Rate 60 ml/min (>60); GFR (African American) 72 ML/MIN (>60)
[2025-02-09 06:55] LABS: Alanine Aminotransferase 15 U/L (12-78); Albumin/Globulin Ratio 0.7 (1.1-1.8); Alkaline Phosphatase 72 U/L (38-126); Anion Gap 7.6 mEq/L (5-15); Aspartate Amino Transferase 25 U/L (14-36); Bilirubin,Total 0.6 mg/dl (0.2-1.3); Calcium 9.1 mg/dl (8.4-10.2); Carbon Dioxide 28 mmol/L (22.0-30.0); Globulin 4.2 g/dL (1.3-3.2); Glucose 98 mg/dl (74-100); Total Protein,Serum 7.0 g/dl (6.3-8.2)
[2025-02-09 07:02] LABS: Magnesium 1.7 mg/dl (1.6-2.3)
[2025-02-09 07:55] VITALS: BP 147/87; PULSE 76; RESP 16; TEMP 37.1; O2SAT 94
[2025-02-09 08:00] VITALS: PULSE 80
[2025-02-09] MEDS: CEFEPIME HCL 2 GM in 0.9 % SODIUM CHLORIDE 100 ML IV (08:55)
[2025-02-09] MEDS: TOLTERODINE LA 2MG CAP.ER.24H 2 MG PO (08:56)
[2025-02-09] MEDS: ASPIRIN EC 81MG TABLET 81 MG PO (08:56)
[2025-02-09] MEDS: APIXABAN 5MG TABLET 5 MG PO (08:56)
--- NOTE | 2025-02-09 11:24 | EXP.PHA.CONS ---
Pharmacy Consult Date: 02/09/25 Time: 11:24 Referring provider: DR. DOUGLAS Reason for Consult:: VANCOMYCIN TROUGH Allergies Allergy/AdvReac Type Severity Reaction Status Date / Time morphine AdvReac Anxiety Verified 02/06/25 00:50 Penicillins AdvReac Hives Verified 02/06/25 00:49 Sulfa (Sulfonamide AdvReac Hives Verified 02/06/25 00:49 Antibiotics) tetanus immune globulin AdvReac Unknown Verified 02/06/25 00:49 allergy reaction Home Medications ?Medication ?Instructions ?Recorded ?Confirmed ?Type fluticasone propionate 50 1 spray intranasal BID 02/06/25 02/06/25 History mcg/actuation nasal spray,suspension hydrocodone 10 mg-acetaminophen 1 tab PO QID 02/06/25 02/06/25 History 325 mg tablet levothyroxine 75 mcg tablet 75 mcg PO DAILY 02/06/25 02/06/25 History losartan 50 mg-hydrochlorothiazide 1 tab PO DAILY 02/06/25 02/06/25 History 12.5 mg tablet montelukast 10 mg tablet 10 mg PO HS 02/06/25 02/06/25 History tolterodine 2 mg capsule,extended 2 mg PO DAILY 02/06/25 02/06/25 History release 24 hr New Prescriptions to Start Prescriptions: Height: 1.65 m Weight: 102.648 kg Laboratory Results:: Laboratory Results - last 24 hr 02/09/25 02:13: Vancomycin Trough 12.1 H 02/09/25 05:34: WBC 13.4 H, RBC 3.25 L, Hgb 10.3 L, Hct 32.0 L, MCV 98.5, MCH 31.7 H, MCHC 32.2, RDW 12.7, Plt Count 282, MPV 9.6, Neut % (Auto) 72.9, Lymph % (Auto) 13.4, [place] % (Auto) 10.4 H, Eos % (Auto) 2.2, Baso % (Auto) 0.4, Neut # (Auto) 9.8 H, Lymph # (Auto) 1.8, [place] # (Auto) 1.4 H, Eos # (Auto) 0.3, Baso # (Auto) 0.1, Sodium 132 L, Potassium 3.6, Chloride 100, Carbon Dioxide 28, Anion Gap 7.6, BUN 17, Creatinine 0.90, Estimated Creat Clear 68, Estimated GFR 60, Est GFR ( Amer) 72, Glucose 98, Calcium 9.1, Magnesium 1.7, Total Bilirubin 0.6, AST 25, ALT 15, Alkaline Phosphatase 72, Total Protein 7.0, Albumin 2.8 L, Globulin 4.2 H, Albumin/Globulin Ratio 0.7 L Medical History: Medical History (Updated 02/06/25 @ 09:34 by Yoselin Santamaria APRN) History of cataract Asthma History of transient ischemic attack (TIA) Osteoarthritis Deep vein thrombosis (DVT) Hyperlipidemia Obesity (BMI 30.0-34.9) Hypothyroid Hypertension Assessment and Plan Assessment and plan all Dx Assessment and Plan for all problems:: BASED ON PATIENT FACTORS AND VANCOMYCIN TROUGH LEVEL OF 12.1, RECOMMEND CONTINUING CURRENT VANCOMYCIN DOSE AT 1,500MG EVERY 24 HOURS. PHARMACY WILL CONTINUE TO MONITOR AND ADJUST DOSE APPROPRIATE. -MENDY SPARKS, JOSED
[2025-02-09 12:00] VITALS: BP 154/81; PULSE 83; RESP 18; TEMP 36.8; O2SAT 94
--- NOTE | 2025-02-09 12:20 | P.DS_ITS ---
<Statement entered by Gino Gonzalez MD - 02/09/25 16:06> Rounded on patient after nurse practitioner. Personally examined and interviewed patient. Agree with exam findings and care plan as documented. General Admission date:: 02/06/25 Discharge date: 02/09/25 HPI HPI HPI: Ms. Najera is an 84-year-old female who presented to the ER because of complaint of feeling weak over the past day or 2. Has not wanted to get out of her chair at home. Has had some nausea but denies chest pain. On arrival by EMS, patient was found to be in A-fib with heart rate 130-160. She was unkempt and covered in feces. She denies nausea, vomiting, headache, dizziness, chest pain. Afebrile. Workup in the ER concerning for white count of 29. Heart rate showed some improvement with fluids and initiation of treatment for UTI/sepsis. Medicine consulted for admission and further management. Hospital Course Hospital Course Hospital Course: Ms. Najera is a 89-year-old female who presented to the ER on 02/06/2025 with complaints of feeling weak over the past few days. She was found to be unkempt and covered in feces. She has a known primary medical history of hypertension, hypothyroidism, morbid obesity. Workup in the ED found that the patient was in new onset atrial fibrillation, heart rate 130-160. It also was significant for a leukocytosis with a white count of 29. Patient was treated for possible urinary tract infection, sepsis, right leg cellulitis. Empiric antibiotics were initiated, amiodarone was given and improvement in heart rate occurred. Patient was given sepsis bolus. Patient was managed as follows: #Sepsis #Urinary incontinence #Cellulitis of right lower extremity ? Patient initially met sepsis criteria with a white count of 29.5, elevated heart rate above 100. Blood cultures have shown no growth after 48 hours. Suspected possible urinary tract infection, treated with vancomycin and cefepime IV. Will transition to Keflex for total of 7 days at discharge. ? Leukocytosis has greatly improved, 13.4 day of discharge. Cellulitis of right lower extremity improving. ? Chest x-ray, chest CTA unremarkable. Respiratory panel negative. #New onset A-fib #Hypertension #Renal vein thrombus ? Cardiology was consulted recommendations to initiate metoprolol tartrate 25 mg every 8 hours, Eliquis 5 mg twice daily, aspirin 81 mg daily, Lipitor 40 mg daily. ? Patient did have a bump in her troponin, 0.37. Patient denied chest pain, shortness of breath during admission, EKG negative for STEMI. Further evaluation in the outpatient setting warranted, follow-up in 1 week for ischemic evaluation. ?Patient had abdomen/pelvis CT showing filling defect at the left renal vein suspicious for renal vein thrombus, starting Eliquis as appropriate therapy, patient should follow-up with cardiology within 1 week. ?Patient will be discharged home on a 2-week event monitor to monitor for A-fib. ?Echo showed LVEF of 50%, severe bilateral dilation, markedly elevated RVSP 45- 50. #Physical deconditioning #Decubitus ulcer sacral region, stage II ? Patient was evaluated by PT/OT due to weakness and surrounding her circumstances on admission. Recommendations made for rehab facility with [facility] services to improve transfer, general strength and ambulation ability. ? Decubitus, stage II gluteal fissure, should be monitored. #Hypothyroid ?Continue levothyroxine 75 mcg daily, TSH 1.35. Total time spent on discharge 35 minutes in counseling, documentation, chart review, and direct care with patient. Exam Data for Last 24 hours Vital signs and Labs for Last 24 Hours: Temp Pulse Resp BP Pulse Ox O2 Del Method 98.8 F 80 16 147/87 H 94 L Room Air 02/09/25 07:55 02/09/25 08:00 02/09/25 07:55 02/09/25 07:55 02/09/25 07:55 02/09/25 09:58 Laboratory Results - last 24 hr 02/09/25 02:13: Vancomycin Trough 12.1 H 02/09/25 05:34: WBC 13.4 H, RBC 3.25 L, Hgb 10.3 L, Hct 32.0 L, MCV 98.5, MCH 31.7 H, MCHC 32.2, RDW 12.7, Plt Count 282, MPV 9.6, Neut % (Auto) 72.9, Lymph % (Auto) 13.4, [place] % (Auto) 10.4 H, Eos % (Auto) 2.2, Baso % (Auto) 0.4, Neut # (Auto) 9.8 H, Lymph # (Auto) 1.8, [place] # (Auto) 1.4 H, Eos # (Auto) 0.3, Baso # (Auto) 0.1, Sodium 132 L, Potassium 3.6, Chloride 100, Carbon Dioxide 28, Anion Gap 7.6, BUN 17, Creatinine 0.90, Estimated Creat Clear 68, Estimated GFR 60, Est GFR ( Amer) 72, Glucose 98, Calcium 9.1, Magnesium 1.7, Total Bilirubin 0.6, AST 25, ALT 15, Alkaline Phosphatase 72, Total Protein 7.0, Albumin 2.8 L, Globulin 4.2 H, Albumin/Globulin Ratio 0.7 L I & O for Last 24 hours: Intake & Output 02/06/25 02/07/25 02/08/25 02/09/25 23:59 23:59 23:59 23:59 Intake Total 400 / 500 760 / 860 910 / 910 240 / 240 Output Total 200 / 200 1400 / 1400 950 / 1350 1100 / 1100 Balance 200 / 300 -640 / -540 -40 / -440 -860 / -860 Weight 108.046 kg 108.953 kg 103.6 kg 102.648 kg Constitutional Constitutional: no acute distress, morbidly obese and cooperative *Routine HEENT Exam Head: Present normocephalic Eye: Present EOMI ENT: Present mucous membranes moist *Routine Neck Exam Neck: Present supple and full ROM; Absent thyromegaly *Routine Respiratory Exam Respiratory: Present CTA bilaterally, normal respiratory effort, able to speak in complete sentences and symmetric chest movement; Absent wheezes or crackles *Routine Cardiovascular Exam Cardiovascular: Present RRR; Absent murmur *Routine Abdominal Exam Abdominal: Present soft and normoactive bowel sounds; Absent tenderness or distended *Routine Extremities Exam Extremities: Present edema (Trace bilateral lower extremities) Comments: Right lower leg resolving cellulitis?1 cm wound medial calf Decubitus, stage II within the gluteal fissure *Routine Skin Exam Skin: Present dry *Routine Neurological Exam Neurological: Present alert, oriented X3, moving all extremities and normal speech Routine Psychiatric Exam Psychiatric: Present normal affect Results Data Completed and Pending Labs on day of discharge: Labs from last 24 hours 02/09/25 02/09/25 05:34 02:13 WBC 13.4 H RBC 3.25 L Hgb 10.3 L Hct 32.0 L MCV 98.5 MCH 31.7 H MCHC 32.2 RDW 12.7 Plt Count 282 MPV 9.6 Neut % (Auto) 72.9 Lymph % (Auto) 13.4 [place] % (Auto) 10.4 H Eos % (Auto) 2.2 Baso % (Auto) 0.4 Neut # (Auto) 9.8 H Lymph # (Auto) 1.8 [place] # (Auto) 1.4 H Eos # (Auto) 0.3 Baso # (Auto) 0.1 Sodium 132 L Potassium 3.6 Chloride 100 Carbon Dioxide 28 Anion Gap 7.6 BUN 17 Creatinine 0.90 Estimated Creat Clear 68 Estimated GFR 60 Est GFR ( Amer) 72 Glucose 98 Calcium 9.1 Magnesium 1.7 Total Bilirubin 0.6 AST 25 ALT 15 Alkaline Phosphatase 72 Total Protein 7.0 Albumin 2.8 L Globulin 4.2 H Albumin/Globulin Ratio 0.7 L Vancomycin Trough 12.1 H Preliminary micro results at discharge 02/06/25 01:29 Blood Culture - Preliminary Blood NO GROWTH AFTER 48 HOURS 02/06/25 01:08 Blood Culture - Preliminary Blood NO GROWTH AFTER 48 HOURS DS: Diagnosis Discharge Diagnosis (1) New onset atrial fibrillation: Status: Acute Code(s): I48.91 - Unspecified atrial fibrillation (2) UTI (urinary tract infection): Status: Acute Code(s): N39.0 - Urinary tract infection, site not specified (3) Sepsis: Status: Acute Code(s): A41.9 - Sepsis, unspecified organism (4) Hypertension: Status: Chronic Code(s): I10 - Essential (primary) hypertension (5) Hypothyroid: Status: Chronic Code(s): E03.9 - Hypothyroidism, unspecified (6) Obesity (BMI 30.0-34.9): Status: Chronic Code(s): E66.811 - Obesity, class 1 (7) Renal vein thrombosis: Status: Acute Code(s): I82.3 - Embolism and thrombosis of renal vein (8) Decubitus ulcer of sacral region, stage 2: Status: Acute Code(s): L89.152 - Pressure ulcer of sacral region, stage 2 (9) Cellulitis of right lower extremity from knee to ankle: Status: Acute Code(s): L03.115 - Cellulitis of right lower limb (10) Physical deconditioning: Status: Acute Code(s): R53.81 - Other malaise Meds Home Medications and Allergies Home Medications ?Medication ?Instructions ?Recorded ?Confirmed ?Type fluticasone propionate 50 1 spray intranasal BID 02/0602/06/25 History mcg/actuation nasal spray,suspension hydrocodone 10 mg-acetaminophen 1 tab PO QID 02/06/25 02/06/25 History 325 mg tablet levothyroxine 75 mcg tablet 75 mcg PO DAILY 02/06/25 0 02/06/25 History losartan 50 mg-hydrochlorothiazide 1 tab PO DAILY 08/0202/06/25 History 12.5 mg tablet montelukast 10 mg tablet 10 mg PO HS 02/06/25 5 History tolterodine 2 mg capsule,extended 2 mg PO DAILY 02/06/25 History release 24 hr apixaban 5 mg tablet (Eliquis) 5 mg PO BID #30 tabs Rx aspirin 81 mg tablet 81 mg PO DAILY #30 tabs 10/31 Rx atorvastatin 40 mg tablet (Lipitor) 40 mg PO HS #30 ta bs 02/09/25 Rx cephalexin 500 mg capsule 500 mg PO BID #6 caps Rx metoprolol tartrate 25 mg tablet 25 mg PO Q8H 30 days #90 tabs 02/09/25 Rx New Prescriptions to Start Prescriptions: apixaban [Eliquis] William,Emma aspirin Emma Thomas atorvastatin [Lipitor] William,Emma cephalexin William,Emma metoprolol tartrate Emma Thomas Allergies Allergy/AdvReac Type Severity Reaction Status Date / Time morphine AdvReac Anxiety Verified 02/06/25 00:50 Penicillins AdvReac Hives Verified 02/06/25 00:49 Sulfa (Sulfonamide AdvReac Hives Verified 02/06/25 00:49 Antibiotics) tetanus immune globulin AdvReac Unknown Verified 02/06/25 00:49 allergy reaction Discharge Plan Disposition Patient Disposition: [facility] Condition: Fair Discharge Order Discharge Orders: Discharge Order (Routine); Ordered 02/09/25 Ordered By: Emma Thomas Follow up Plan Follow up with: Paulina Russell APRN [Nurse Practitioner, Cardiology] - Enter time for follow up Referral Note: 1 week Prescriptions/Medication Reconciliation: New cephalexin 500 mg capsule 500 mg PO BID Qty: 6 0RF Eliquis 5 mg tablet 5 mg PO BID Qty: 30 0RF aspirin 81 mg tablet 81 mg PO DAILY Qty: 30 0RF atorvastatin [Lipitor] 40 mg tablet 40 mg PO HS Qty: 30 0RF metoprolol tartrate 25 mg Tablet 25 mg PO Q8H 30 Days Qty: 90 0RF Continued tolterodine 2 mg capsule,extended release 24hr 2 mg PO DAILY hydrocodone-acetaminophen 10-325 mg tablet 1 tab PO QID Patient Comments: TAKE 1 TABLET 4 TIMES EACH DAY BEFORE MEALS. levothyroxine 75 mcg tablet 75 mcg PO DAILY montelukast 10 mg tablet 10 mg PO HS losartan-hydrochlorothiazide 50-12.5 mg tablet 1 tab PO DAILY fluticasone propionate 50 mcg/actuation spray,suspension 1 spray INTRANASAL BID Problem Reconciliation Problems Reviewed?: Yes Patient Discharge Instructions ACTIVITY: Continue current activity, Ambulate as tolerated and Up with assistance DIET: continue same diet Patient Instructions: Hypertension (Alternative Therapy), Urinary Tract Infection, Hypothyroidism, Sepsis, Atrial Fibrillation, High-Calorie, High- Protein Diet, Stop Light Infection Print Language: Ecuadorean Providers Primary Care Provider: Salomón Moffett Admit Provider: Gino Gonzalez Attending Provider: Gino Gonzalez
[2025-02-09] MEDS: MAGNESIUM SULFATE IN WATER 2 GM/50 ML PIGGYBACK IV ×2 (12:30→13:30)
== END 2025-02-09 15:29 | DRG 872 ==
LOC: ER 00:14 → 2ND 04:42
PROVIDERS: Internal Medicine; Admitting Provider Internal Medicine Adolescent Medicine; Emergency Provider Emergency Medicine; PCP Family Medicine; Visit Provider Internal Medicine Adolescent Medicine
DX: A41.9 Sepsis, unspecified organism (principal); N39.0 Urinary tract infection, site not specified; L03.115 Cellulitis of right lower limb; I82.3 Embolism and thrombosis of renal vein; I48.91 Unspecified atrial fibrillation; I10 Essential (primary) hypertension; E03.9 Hypothyroidism, unspecified; E66.811 Obesity, class 1; L89.152 Pressure ulcer of sacral region, stage 2; K44.9 Diaphragmatic hernia without obstruction or gangrene; R53.81 Other malaise; R79.89 Other specified abnormal findings of blood chemistry; Z68.37 Body mass index [BMI] 37.0-37.9, adult; Z86.73 Personal history of transient ischemic attack (TIA), and cerebral infarction without residual deficits; Z86.718 Personal history of other venous thrombosis and embolism; Z79.890 Hormone replacement therapy; Z79.899 Other long term (current) drug therapy; Z88.0 Allergy status to penicillin; Z88.2 Allergy status to sulfonamides; Z88.5 Allergy status to narcotic agent; Z88.7 Allergy status to serum and vaccine
CPT/HCPCS: 36415; 71045; 71275; 74177; 80053; 80202; 81001; 83605; 83735; 83880; 84145; 84443; 84484; 85007; 85025; 85610; 87040; 87633; 93005; 93225; 93227; 93306; 97163; 97166; 97530; J0692; J1650; J1836; J2470; J3375; J3475; J7120; Q9967

== ENCOUNTER 2025-02-11 13:43 | Outpatient (CLI) | payer MEDICARE, SELFPAY | END 2025-02-11 23:59 | disposition home or self-care (01) | LOC: RT 13:47 | PROVIDERS: PCP Family Medicine; Visit Provider Internal Medicine | DX: I49.1 Atrial premature depolarization (principal); I47.19 Other supraventricular tachycardia; I49.3 Ventricular premature depolarization; I47.29 Other ventricular tachycardia; I49.49 Other premature depolarization; I48.91 Unspecified atrial fibrillation | CPT/HCPCS: 93270 ==